=== PATIENT | male | born 1955 | race Caucasian/White ===

== ENCOUNTER → 2020-03-03 15:37 | Outpatient (BNVA) | payer OTHER, SELFPAY | PROVIDERS: PCP Internal Medicine; Visit Provider Physician Assistant | DX: Z76.89 Persons encountering health services in other specified circumstances (principal) ==

== ENCOUNTER → 2020-03-06 13:08 | Outpatient (BNVA) | payer OTHER, SELFPAY | PROVIDERS: PCP Internal Medicine; Referring Provider Internal Medicine; Visit Provider Dietitian, Registered | DX: Z76.89 Persons encountering health services in other specified circumstances (principal) ==

== ENCOUNTER → 2020-04-04 08:11 | Outpatient (BNVA) | payer OTHER, SELFPAY | PROVIDERS: Visit Provider Physician Assistant | DX: Z76.89 Persons encountering health services in other specified circumstances (principal) ==

== ENCOUNTER → 2020-05-02 09:57 | Outpatient (BNVA) | payer OTHER, SELFPAY | PROVIDERS: PCP Internal Medicine; Referring Provider Internal Medicine; Visit Provider Surgery | DX: Z76.89 Persons encountering health services in other specified circumstances (principal) ==

== ENCOUNTER 2020-06-01 06:01 | Outpatient (REF) | payer OTHER, SELFPAY ==
[2020-06-01 09:18] LABS: Vitamin D 25-OH Total 56.5 ng/mL (>30)
== END 2020-06-01 06:02 | disposition home or self-care (01) ==
LOC: HO.LAB 06:01
PROVIDERS: PCP Internal Medicine; Referring Provider Internal Medicine; Visit Provider Surgery
DX: Z01.818 Encounter for other preprocedural examination (principal); E55.9 Vitamin D deficiency, unspecified
CPT/HCPCS: 36415; 82306

== ENCOUNTER → 2020-06-08 08:10 | Outpatient (BNVA) | payer OTHER, SELFPAY | PROVIDERS: PCP Internal Medicine; Visit Provider Dietitian, Registered ==

== ENCOUNTER → 2020-07-04 14:54 | Outpatient (BNVA) | payer OTHER, SELFPAY | PROVIDERS: PCP Internal Medicine; Visit Provider Surgery | DX: K91.2 Postsurgical malabsorption, not elsewhere classified (principal); Z90.3 Acquired absence of stomach [part of]; Z01.818 Encounter for other preprocedural examination; Z13.9 Encounter for screening, unspecified ==

== ENCOUNTER → 2020-08-03 13:40 | Outpatient (BNVA) | payer OTHER, SELFPAY | PROVIDERS: PCP Internal Medicine; Visit Provider Dietitian, Registered | DX: Z68.41 Body mass index [BMI] 40.0-44.9, adult (principal) ==

== ENCOUNTER 2020-08-28 06:00 | Outpatient (REF) | payer OTHER, SELFPAY ==
[2020-08-28 07:26] LABS: MANUAL DIFF FLAG NO
[2020-08-28 07:30] LABS: Basophils Absolute Auto 0.1 X10*3/uL (0.0-0.2); Basophils Percent Auto 0.6 % (0-2); Eosinophils Absolute Auto 0.3 X10*3/uL (0.0-0.4); Eosinophils Percent Auto 3.2 % (0-4); Hematocrit 48.8 % (42-52); Hemoglobin 15.6 g/dl (14.0-18.0); Imm Gran Abs Auto 0.02 X10*3/uL (0.00-0.03); Imm Gran Pct Auto 0.3 % (0.0-0.4); Lymphocytes Absolute Auto 2.2 X10*3/uL (1.2-4.9); Lymphocytes Percent Auto 28.8 % (20-40); Mean Corpuscular Hemoglobin 31.9 pg (27.0-33.0); Mean Corpuscular Volume 99.8 fL (80-98); Mean Platelet Volume 10.6 fL (9.4-12.4); Monocytes Absolute Auto 0.7 X10*3/uL (0.1-1.2); Monocytes Percent Auto 8.6 % (2-11); Neutrophils Absolute Auto 4.5 X10*3/uL (2.0-8.3); Neutrophils Percent Auto 58.5 % (45-73); Platelet Count 289 X10*3/uL (160-400); Red Blood Count 4.89 X10*6/uL (4.60-5.80); Red Cell Distribution Width 13.8 % (11.0-16.0); White Blood Count 7.7 X10*3/uL (4.8-10.8)
[2020-08-28 07:49] LABS: Alanine Aminotransferase 17 U/L (0-40); Alkaline Phosphatase 62 U/L (39-117); Anion Gap 11 (12-20); Aspartate Amino Transferase 18 U/L (5-37); Bilirubin Total 0.9 mg/dL (0.0-1.0); Blood Urea Nitrogen 21 mg/dL (9-16); C Reactive Protein 0.32 mg/dL (< or = 0.50); Calcium 9.1 mg/dL (8.4-10.2); Carbon Dioxide 28 mmol/L (22-29); Chloride 108 mmol/L (96-108); Cholesterol 179 mg/dL; Estimated Glomerular Filt Rate > 60; Glucose Fasting 93 mg/dL (60-99); HDL Cholesterol 45 mg/dL; Iron 123 mcg/dL (45-160); LDL Cholesterol Calculated 121 mg/dl; Percent Iron Saturation 49 % (15-50); Potassium 4.4 mmol/L (3.3-5.1); Sodium 143 mmol/L (135-145); Total Iron Binding Capacity 249 mcg/dL (228-428); Total Protein 6.4 g/dL (6.5-8.0); Triglycerides 69 mg/dL; Unsaturated Iron Binding 126 ug/dL
[2020-08-28 08:12] LABS: Thyroid Stimulating Hormone 0.43 uIU/mL (0.32-4.0); Vitamin D 25-OH Total 45.8 ng/mL (>30)
[2020-08-28 08:14] LABS: Free T4 (Free Thyroxine) 0.92 ng/dL (0.71-1.85); Prostate Specific Antigen Scr 0.11 ng/mL (<0.05-4.0); Vitamin D 25-OH Total 44.3 ng/mL (>30)
[2020-08-28 08:20] LABS: Folate 16.2 ng/mL (> or = 4.0); Vitamin B12 380 pg/mL (200-900)
[2020-08-29 08:07] LABS: Follicle Stimulating Hormone 11.6 mIU/mL (1.6-8.0); Lutenizing Hormone 4.3 mIU/mL (1.6-15.2); Prolactin 5.6 ng/mL (2.0-18.0)
[2020-08-31 00:32] LABS: Zinc 91 mcg/dL (60-130)
[2020-08-31 11:42] LABS: Vitamin B1 10 nmol/L (8-30)
[2020-09-01 10:51] LABS: Testosterone, Total 488 ng/dL (250-1100)
[2020-09-01 16:57] LABS: Vitamin A 60 mcg/dL (38-98)
== END 2020-08-28 06:01 | disposition home or self-care (01) ==
LOC: HO.LAB 06:00
PROVIDERS: Absent Provider Surgery; PCP Internal Medicine; Visit Provider Internal Medicine
DX: Z01.818 Encounter for other preprocedural examination (principal); Z12.5 Encounter for screening for malignant neoplasm of prostate; K91.2 Postsurgical malabsorption, not elsewhere classified; Z90.3 Acquired absence of stomach [part of]; N52.9 Male erectile dysfunction, unspecified; E78.00 Pure hypercholesterolemia, unspecified
CPT/HCPCS: 36415; 80053; 80061; 82306; 82607; 82746; 83001; 83002; 83540; 84146; 84153; 84403; 84425; 84439; 84443; 84590; 84630; 85025; 86140

== ENCOUNTER → 2020-12-19 10:34 | Outpatient (BNVA) | payer OTHER, SELFPAY | PROVIDERS: PCP Internal Medicine; Visit Provider Surgery | DX: Z01.818 Encounter for other preprocedural examination (principal); K91.2 Postsurgical malabsorption, not elsewhere classified; Z90.3 Acquired absence of stomach [part of] ==

== ENCOUNTER 2021-02-16 05:58 | Outpatient (REF) | payer OTHER, SELFPAY ==
[2021-02-16 06:07] LABS: MANUAL DIFF FLAG NO
[2021-02-16 07:28] LABS: Basophils Absolute Auto 0.1 X10*3/uL (0.0-0.2); Basophils Percent Auto 0.7 % (0-2); Eosinophils Absolute Auto 0.3 X10*3/uL (0.0-0.4); Eosinophils Percent Auto 3.8 % (0-4); Hematocrit 50.3 % (42-52); Imm Gran Abs Auto 0.02 X10*3/uL (0.00-0.03); Imm Gran Pct Auto 0.3 % (0.0-0.4); Lymphocytes Absolute Auto 2.6 X10*3/uL (1.2-4.9); Lymphocytes Percent Auto 34.9 % (20-40); Mean Corpuscular HGB Conc 31.8 g/dl (31.0-36.0); Mean Corpuscular Hemoglobin 31.4 pg (27.0-33.0); Mean Corpuscular Volume 98.8 fL (80-98); Mean Platelet Volume 10.4 fL (9.4-12.4); Monocytes Absolute Auto 0.6 X10*3/uL (0.1-1.2); Monocytes Percent Auto 7.8 % (2-11); Neutrophils Absolute Auto 3.9 X10*3/uL (2.0-8.3); Neutrophils Percent Auto 52.5 % (45-73); Platelet Count 294 X10*3/uL (160-400); Red Blood Count 5.09 X10*6/uL (4.60-5.80); Red Cell Distribution Width 13.3 % (11.0-16.0); White Blood Count 7.5 X10*3/uL (4.8-10.8)
[2021-02-16 07:34] LABS: Estimated Average Glucose 108 mg/dL; Hemoglobin A1c % 5.4 %
[2021-02-16 07:53] LABS: Alanine Aminotransferase 20 U/L (0-40); Albumin Level 4.1 g/dL (3.5-5.0); Alkaline Phosphatase 63 U/L (39-117); Anion Gap 13 (12-20); Aspartate Amino Transferase 22 U/L (5-37); Bilirubin Total 0.8 mg/dL (0.0-1.0); Blood Urea Nitrogen 22 mg/dL (9-16); C Reactive Protein 0.53 mg/dL (< or = 0.50); Calcium 9.8 mg/dL (8.4-10.2); Carbon Dioxide 30 mmol/L (22-29); Chloride 106 mmol/L (96-108); Cholesterol 217 mg/dL; Estimated Glomerular Filt Rate > 60; Glucose Fasting 91 mg/dL (60-99); HDL Cholesterol 48 mg/dL; Iron 136 mcg/dL (45-160); LDL Cholesterol Calculated 149 mg/dl; Percent Iron Saturation 49 % (15-50); Potassium 4.8 mmol/L (3.3-5.1); Sodium 144 mmol/L (135-145); Total Iron Binding Capacity 277 mcg/dL (228-428); Total Protein 6.7 g/dL (6.5-8.0); Triglycerides 101 mg/dL; Unsaturated Iron Binding 141 ug/dL
[2021-02-16 08:17] LABS: Thyroid Stimulating Hormone 0.98 uIU/mL (0.32-4.0); Vitamin D 25-OH Total 38.2 ng/mL (>30)
[2021-02-16 08:18] LABS: Vitamin B12 329 pg/mL (200-900)
[2021-02-21 03:01] LABS: Zinc 78 mcg/dL (60-130)
[2021-02-21 04:51] LABS: Vitamin A 72 mcg/dL (38-98)
[2021-02-21 13:27] LABS: Vitamin B1 14 nmol/L (8-30)
== END 2021-02-16 05:59 | disposition home or self-care (01) ==
LOC: HO.LAB 05:58
PROVIDERS: PCP Internal Medicine; Visit Provider Surgery
DX: Z01.818 Encounter for other preprocedural examination (principal); N52.9 Male erectile dysfunction, unspecified; E78.00 Pure hypercholesterolemia, unspecified; K91.2 Postsurgical malabsorption, not elsewhere classified; Z90.3 Acquired absence of stomach [part of]
CPT/HCPCS: 36415; 80053; 80061; 82306; 82607; 83036; 83540; 84425; 84443; 84590; 84630; 85025; 86140

== ENCOUNTER 2023-01-22 18:56 | Emergency (ER) | payer MEDICARE, OTHER, SELFPAY ==
--- NOTE | ~2023-01-22 | CT_ITS ---
EXAMINATION: CT FEMUR WITHOUT CONTRAST, RIGHT CLINICAL INFORMATION: Severe pain, fall. COMPARISON: None available. TECHNIQUE: Multidetector volumetric imaging was obtained through the right femur without contrast material. Multiplanar reformatted images in coronal and sagittal orientations were submitted. This CT examination was performed using dose optimization techniques as appropriate, variously including the following: *Automated exposure control *Adjustment of mA and/or kV according to patient size (this includes techniques or standardized protocols for targeted exams where dose is matched to indication/reason for exam; i.e. extremities or head) *Use of iterative reconstruction technique DLP: 371 mGy-cm FINDINGS: No acute fracture or malalignment. Bone mineralization is normal. There is mild osteoarthritis of the right hip joint with small marginal osteophytes and nonuniform joint space narrowing. There is tricompartmental osteoarthritis at the right knee, most pronounced in the lateral compartment, characterized by nonuniform joint space narrowing, marginal osteophytes, articular sclerosis, talar cortical remodeling, subchondral cystic change. There is a small effusion at the right knee joint. Of note, there is swelling of the right hamstring musculature and the adductor katy. Additionally, there is a probable hematoma in the fascial planes surrounding the hamstring tendons and sciatic nerve. This hematoma appears near isodense to the musculature, making the margins difficult to discern, though it measures roughly 9 x 4.5 x 18 cm (AP by transverse by longitudinal). Fat stranding is present in the surrounding fascial planes. A tear of the hamstring tendon origins with distal retraction is suspected, though the margins are not well delineated by CT. Distal retraction up to 8.5 cm is suspected. Asymmetry of the right piriformis muscle is likely due to relative atrophy of the left piriformis related to the prior left total hip arthroplasty, within normal limits. Atrophy of the left obturator internus muscle is also noted. There is a small amount of fluid in the right presacral fat, partially imaged on this study. Otherwise, no acute intrapelvic findings. Dystrophic calcifications are present in the central prostate. CT/CT femur RT wo IV con IMPRESSION: 1. No acute fracture or malalignment at the right femur. 2. Large intramuscular hematoma around the right proximal hamstring musculature and adductor katy, most likely due to an avulsion of the hamstring tendons at the ischial tuberosity. Consider correlation with MRI for more detailed assessment. 3. Small amount of fluid in the right presacral fat, partially imaged on this study. This could be further assessed on MRI of the pelvis if the patient has symptoms referrable to the central pelvis or sacrum.
--- NOTE | ~2023-01-22 | XR_ITS ---
EXAMINATION: XR PELVIS XR FEMUR, RIGHT CLINICAL INFORMATION: Pain status-post fall. COMPARISON: Left hip radiographs dated 08/09/2016; CT abdomen and pelvis dated 03/23/2018. TECHNIQUE: AP view of the pelvis. AP and lateral views of the right femur were obtained. FINDINGS: Prosthetic components of the left total hip arthroplasty are appropriately aligned. No periprosthetic fracture. There is stable subchondral cyst formation of the acetabulum. There is brandin-implant lucency of 1-2 mm, which is clinically insignificant. No gross loosening is seen. The right acetabular joint space is well-maintained, and the right femoral head is smooth. The right sacroiliac joint is well-maintained. The upper left sacroiliac joint shows joint space narrowing, articular surface irregularity and subchondral sclerosis, consistent with CT findings of 03/23/2018 (i.e., 4:125). The pubic symphysis is intact. There is no fracture or dislocation. No soft tissue calcification or foreign body is seen. There are incompletely characterized degenerative changes of the lower lumbar spine. XR/XR femur RT 2V IMPRESSION: 1. An intact left hip total arthroplasty is seen, without hardware failure or gross loosening. 2. No unusual degenerative change is seen of the right hip. 3. There is asymmetric left sacroiliitis, which can be associated with psoriatic arthritis and reactive arthritis. 4. No acute fracture or dislocation is seen.
--- NOTE | ~2023-01-22 | XR_ITS ---
EXAMINATION: XR PELVIS XR FEMUR, RIGHT CLINICAL INFORMATION: Pain status-post fall. COMPARISON: Left hip radiographs dated 08/09/2016; CT abdomen and pelvis dated 03/23/2018. TECHNIQUE: AP view of the pelvis. AP and lateral views of the right femur were obtained. FINDINGS: Prosthetic components of the left total hip arthroplasty are appropriately aligned. No periprosthetic fracture. There is stable subchondral cyst formation of the acetabulum. There is brandin-implant lucency of 1-2 mm, which is clinically insignificant. No gross loosening is seen. The right acetabular joint space is well-maintained, and the right femoral head is smooth. The right sacroiliac joint is well-maintained. The upper left sacroiliac joint shows joint space narrowing, articular surface irregularity and subchondral sclerosis, consistent with CT findings of 03/23/2018 (i.e., 4:125). The pubic symphysis is intact. There is no fracture or dislocation. No soft tissue calcification or foreign body is seen. There are incompletely characterized degenerative changes of the lower lumbar spine. XR/XR pelvis 1-2V IMPRESSION: 1. An intact left hip total arthroplasty is seen, without hardware failure or gross loosening. 2. No unusual degenerative change is seen of the right hip. 3. There is asymmetric left sacroiliitis, which can be associated with psoriatic arthritis and reactive arthritis. 4. No acute fracture or dislocation is seen.
[2023-01-22 19:19] VITALS: BP 118/77; PULSE 95; RESP 20; TEMP 36; O2SAT 96; BMI 47.0
--- NOTE | 2023-01-22 19:21 | ED_ITS ---
HPI - General Adult General Chief complaint: Extremity Injury, Lower Stated complaint: fell groin pain Time Seen by Provider: 01/22/23 19:58 Source: patient Mode of arrival: ambulatory Limitations: no limitations History of Present Illness HPI narrative: Patient is a 67-year-old male presents emergency department after mechanical slip and fall on water landing on his buttock with the right leg extended forward at approximately 45 degree angle, with reported pain to the right thigh radiating into the hip. Pain is severe 10/10. Denies any head strike or loss of consciousness with this fall. Denies numbness or tingling to the extremity. Related Data Previous Rx's Medication Instructions Recorded sildenafil 100 mg tablet 100 mg PO DAILY PRN sexual 12/29/22 activity #10 tabs Allergies Allergy/AdvReac Type Severity Reaction Status Date / Time No Known Allergies Allergy Verified 01/22/23 19:22 [No Known Allergies*] Review of Systems Review of Systems: Yes all other systems are reviewed and are negative PMFSH Past Medical History Attestation statement: The following information was validated with the patient. Source: old records reviewed Medical History Vitamin D deficiency Morbid (severe) obesity due to excess calories Intestinal malabsorption following gastrectomy Hearing impaired Impaired fasting glucose Osteoarthritis Hypercholesterolemia BMI 40.0-44.9, adult Malabsorption due to intolerance, not elsewhere classified Morbid obesity Surgical History History of hip replacement Hx laparoscopic cholecystectomy S/P ERCP Hx of tonsillectomy S/P laparoscopic sleeve gastrectomy Family History Family History Father Myocardial infarct Mother No problems noted. Brother Hypertension Brother No problems noted. Sister No problems noted. Sister No problems noted. Son No problems noted. Daughter No problems noted. Daughter No problems noted. Daughter No problems noted. Social History Social History (Updated 04/10/22 @ 11:35 by Tony Francis MD) Housing: House Alcohol intake: never Patient Tobacco Use Status: Former Tobacco user Tobacco use type: Cigarette Years Smoked: stopped 1998 Smoked in Last 30 Days: No e-Cigarette/Vaping Use: Never Used Second Hand Smoke Exposure: No Use of substances other than those prescribed or required for medical reasons: No Advance Directives: No Advance Directives Information Provided: Yes Current occupational status: retired Cognitive needs: No Hearing needs: No Vision needs: Yes Physical Exam ED Vital Signs: Vital Signs - 24 hr 01/22/23 19:19 01/22/23 21:43 01/23/23 00:00 Temperature 96.8 F 98.3 F 97.7 F Pulse Rate 95 81 62 Respiratory Rate 20 16 16 Blood Pressure 118/77 107/51 L 120/65 Pulse Oximetry 96 95 97 Oxygen Delivery Method Room Air Room Air Room Air 01/23/23 01:53 01/23/23 06:56 Temperature 97.8 F Pulse Rate 88 79 Respiratory Rate 16 18 Blood Pressure 142/77 H 115/56 L Pulse Oximetry 93 95 Oxygen Delivery Method Room Air Room Air BMI result Body Mass Index 47.0 Appearance: Alert.?Oriented to person, place and time. No acute distress.?Normal affect. Neck: Normal inspection.? Neck supple.?? CVS: Heart sounds normal. Normal heart rate and rhythm.? Pulses normal.?? Respiratory: No respiratory distress.? Lung sounds clear to auscultation bilaterally?? Abdomen: Soft and non-tender. Skin: Skin warm and dry.? Normal skin color.? Normal skin turgor.?? Extremities: No lower extremity edema.? No calf ttp. 2+ DP/PT pulse bilaterally. No palpable abnormality, hematoma, or appreciated deformity of the right posterior thigh/lower extremity at this time, severe pain with movement of the leg, inability to weightbear. Neuro: Moves all extremities spontaneously. Sensation intact bilaterally. No focal neuro deficits. Course Course Course Narrative: RME- 67 year old male presents for evaluation of right posterior leg pain after a fall. Tenderness to the right hamstring region. Plan for femur x-ray, but most consistent with musclar injury Reevaluation(s) Reevaluation #1: Patient continues to have severe 10/10 pain despite receiving oxycodone. Although XR imaging negative for any acute fracture dislocation, concern for muscular/tendon injury, plan to obtain CT of the femur for further evaluation. Patient to receive diazepam 2 mg Time: 21:13 Reevaluation #2: CT of the femur revealing a large intramuscular hematoma around the right proximal hamstring an abductor katy most likely due to avulsion of the hamstrings tendon at the ischial tuberosity. Patient received Dilaudid 2 mg IM, upon re-evaluation no appreciated muscular deformity, ecchymosis, or findings that would be consistent with compartment syndrome. Has tenderness upon palpation to the medial posterior proximal thigh just below the gluteal fold, this area is soft. Extremity remains neurovascularly intact distally. I consulted with Orthopedics; Mary Yu recommends weight-bearing as tolerated and follow-up outpatient. I reviewed this plan with patient and his . At this time expressing concern about ability to be discharged home safely to prevent pain and immobility. Patient provided with crutches. Will have physical therapy/case management evaluation in the morning. Time: 00:34 Reevaluation #3: PT. Will arrange [facility] for prison and physical therapy. will transport him home. Medications Administered Generic Name Dose Route Start Last Admin Trade Name Freq PRN Reason Stop Dose Admin Hydromorphone HCl 2 mg 01/23/23 03:33 01/23/23 07:05 Hydromorphone Hcl 2 Mg Tablet PO 2 mg Q3H PRN Administration Pain, Moderate(Pain Scale 4-6) Discontinued Medications Generic Name Dose Route Start Last Admin Trade Name Freq PRN Reason Stop Dose Admin Diazepam 2 mg 01/22/23 21:17 01/22/23 21:35 Diazepam 2 Mg Tablet PO 01/22/23 21:18 2 mg ONCE ONE Administration Hydromorphone HCl 2 mg 01/23/23 00:08 01/23/23 00:13 Hydromorphone Hcl 2 Mg/Ml Vial IM 01/23/23 00:09 2 mg ONCE ONE Administration Protocol Oxycodone HCl 5 mg 01/22/23 19:47 01/22/23 20:12 Oxycodone Hcl Immed Release 5 Mg Tablet PO 01/22/23 19:48 5 mg ONCE ONE Administration Medical Decision Making Medical Decision Making MDM Narrative: Patient is a 67-year-old male presents emergency department for evaluation of traumatic right lower extremity pain. Reviewed XR imaging of the right femur and pelvis obtained [facility]; reveals left hip arthroplasty without hardware failure or malalignment, asymmetric left sacroiliitis, no acute fracture or dislocation. At the time my examination he is noted to be in severe pain sitting in a wheelchair with leg in extended position. Unable to weight bear. Required significant assistance to transfer to the stretcher for examination. Has no knee pain. Extremity is neurovascularly intact distally. Diffuse severe pain predominantly to the posterior thigh radiating into the hip but also the anterior thigh. Pain has been unrelieved with oxycodone that was ordered by previous provider from [facility]. Plan at this time for patient received diazepam orally, and obtain CT of the femur for further evaluation a potential muscular injury. Differential Diagnosis Differential Diagnoses: The differential diagnosis associated with the presentation includes (Fracture, dislocation, muscular strain, tendon rupture) Admission/Observation Consideration of admission/observation: Escalation of care including admission/observation considered Consult Healthcare Provider Management of the patient was discussed with: Duplicator Punch Set Up Operator (Orthopedics as per course narrative) Lab Data Labs: Lab Results 01/23/23 Range/Units 09:03 COVID-19 ([facility]) Negative (Negative) COVID-19 Clin Com See Note Independent Interpretation I performed an independent interpretation of an: Plain X-Ray (I personally interpreted XR imaging and agree with radiologist impression. No evidence of acute fracture or dislocation.) Radiology Impression Discussion of test interpretation with radiology: I have reviewed the radiologist's reading. Radiologist Impression: XR/XR pelvis 1-2V IMPRESSION: 1. An intact left hip total arthroplasty is seen, without hardware failure or gross loosening. 2. No unusual degenerative change is seen of the right hip. 3. There is asymmetric left sacroiliitis, which can be associated with psoriatic arthritis and reactive arthritis. 4. No acute fracture or dislocation is seen. CT/CT femur RT wo IV con IMPRESSION: 1. No acute fracture or malalignment at the right femur. 2. Large intramuscular hematoma around the right proximal hamstring musculature and adductor katy, most likely due to an avulsion of the hamstring tendons at the ischial tuberosity. Consider correlation with MRI for more detailed assessment. 3. Small amount of fluid in the right presacral fat, partially imaged on this study. This could be further assessed on MRI of the pelvis if the patient has symptoms referrable to the central pelvis or sacrum. Independent Historian Clinical information obtained from an independent historian. History obtained from or confirmed by: Spouse (Present at bedside who confirms history) Tests considered The following testing was considered but not selected: See course narrative for further detail Prescription Management I considered prescription management with: Pain Medication Discharge Plan Discharge Clinical Impression: Intramuscular hematoma Fall Qualifiers: Encounter type: initial encounter Qualified Code(s): W19.XXXA - Unspecified fall, initial encounter Patient Disposition: Home, Self-Care Instructions: Fall Prevention (ED) Additional Instructions: Take your medications as prescribed. If you were prescribed antibiotics today, it is important that you take your medication to their entirety, do not skip any doses, do not finish them early. Follow-up with your primary care provider this week. Return to the emergency department with new or worsening symptoms. Such as fevers, chills, chest pain, shortness of breath, nausea, vomiting, dizziness, headache, vision changes, lethargy In case of emergency call 911 Prescriptions: No Action sildenafil 100 mg tablet 100 mg PO DAILY PRN (Reason: sexual activity) Qty: 10 5RF Rx Instructions: administer 30 minutes to 4 hours before activity Referrals: Ozzy Colón [Outside] (VNA arranged just in case [facility] does not have home physical therapy. Agency will call for a visit. You can decline their services at that time if not needed. )
[2023-01-22] MEDS: oxyCODONE HCl Immed Release 5 MG TABLET PO (20:12)
[2023-01-22] MEDS: diazePAM 2 MG TABLET PO (21:35)
[2023-01-22 21:43] VITALS: BP 107/51; PULSE 81; RESP 16; TEMP 36.8; O2SAT 95
--- NOTE | 2023-01-22 23:04 | PC.NURSE ---
pt medicated per JUL pt sts oxy 5mg was not effective, sts that valium has imporved his symptoms somewhat. pt sts hamstring is most painful at this time. pt awaiting ct scan read,pt repositioned self in WC- pt spouse at bedside, call waller within reach.
--- NOTE | 2023-01-22 23:51 | PC.NURSE ---
Report received and care assumed. The pt is found to be seated in a wheelchair in the room with bedside visitor presents, inquiring about what's taking so long . RN explained that the staff was awaiting CT read of the pt's imaging. Pt also reporting that the previous medication given (Oxycodone and valium) did not do anything for my hamstring as he reports it assisted with his calf pain and minimally improved his pain however the pain is returning. RN awaiting the ability to notify EXPANDER as she is currently in with another patient. RN to follow up with EXPANDER regarding new orders for patient's pain control/management.
[2023-01-23] VITALS: BP 120/65; PULSE 62; RESP 16; TEMP 36.5; O2SAT 97
--- NOTE | 2023-01-23 00:05 | PC.NURSE ---
RN consulted DO Garza regarding the pt's case as his imaging had returned and his request for additional pain medication. DO Garza entered new orders for pain medication and requested the pt be assisted tot he bed for full examination to assess for compartment syndrome.
[2023-01-23] MEDS: HYDROmorphone HCl 2 MG/ML VIAL IM (00:13)
[2023-01-23 01:53] VITALS: BP 142/77; PULSE 88; RESP 16; TEMP 36.6; O2SAT 93
--- NOTE | 2023-01-23 01:57 | MHC.EDTECH ---
[place] [facility] now [place] this tech offered patient a hospital bed for comfort ,patient stated I'm comfortable in this bed I'm all set RN Enedelia was at bedside. This tech also attempted to teach crutches, patient stated not now he didn't want to wake up Will attempt in the morning when patient is awake. call waller within reach
--- NOTE | 2023-01-23 02:12 | PC.NURSE ---
report received from qing SAHU pt moved from emc bed 2 to ED bed 7 - PT/FERMIN andrade in AM
[2023-01-23] MEDS: HYDROmorphone HCl 2 MG TABLET PO ×3 (03:43→10:31)
[2023-01-23 06:56] VITALS: BP 115/56; PULSE 79; RESP 18; O2SAT 95
--- NOTE | 2023-01-23 07:06 | PC.NURSE ---
pt a&ox3. respirations even and unlabored.pt reports right leg pain from a mechanical fall yesterday after slipping on water. no reddnes and swelling noted. pt right back upper leg tender to touch. pt medicated per jul.
--- NOTE | 2023-01-23 07:51 | PC.NURSE ---
report given to emanuel in overflow.
[2023-01-23 09:23] LABS: IDNOW Serial# 55D5AD1C
[2023-01-23 09:24] LABS: COVID-19 Test Negative (Negative)
--- NOTE | 2023-01-23 10:15 | MHC.CM.ED ---
Received case management consult overnight. Patient came to the ER after a fall. Found to have a left leg intramuscular hematoma. Physical therapy eval completed. Home therapy is recommended. Met with patient in regards to discharge planning. Patient lives with his , ambulates with a cane at times and had no services prior to coming to the ER. PCP verified as Dr Francis. Patient received 3 Moderna and 1 Pfizer vaccine. Patient wants to follow up with [facility] and believes they have home physical therapy. Home [facility]NA for [facility] and physical therapy will be arranged just in case [facility] is not able to provide home services. [facility] will not be able to see patient before Friday. Referral broadcasted in [facility]. [facility] is able to accept patient. Patient's will transport patient home. Continue to monitor for d/c needs.
[2023-01-23 10:31] VITALS: BP 165/80; PULSE 83; RESP 18; O2SAT 98
== END 2023-01-23 10:50 | disposition home or self-care (01) ==
PROVIDERS: Physician Assistant; Emergency Provider Student in an Organized Health Care Education/Training Program; PCP Internal Medicine
DX: S80.11XA Contusion of right lower leg, initial encounter (principal); M25.551 Pain in right hip; R26.81 Unsteadiness on feet; M79.604 Pain in right leg; R10.2 Pelvic and perineal pain; W01.0XXA Fall on same level from slipping, tripping and stumbling without subsequent striking against object, initial encounter; Y93.9 Activity, unspecified; Y92.9 Unspecified place or not applicable; Y99.9 Unspecified external cause status; Z20.822 Contact with and (suspected) exposure to COVID-19; Z20.828 Contact with and (suspected) exposure to other viral communicable diseases; Z87.891 Personal history of nicotine dependence; Z79.899 Other long term (current) drug therapy
CPT/HCPCS: 72170; 73552; 73700; 87635; 96372; 97162; 99284; 99285; J1170

== ENCOUNTER 2023-02-05 09:52 | Outpatient (AMB) | payer MEDICARE, OTHER, SELFPAY ==
--- NOTE | 2023-02-05 09:56 | A.OFFPC_ITS ---
Vital Signs 3 02/05/23 10:05 Height 5 ft 7.32 in Weight 339 lb 4 oz BMI 52.6 BP 134/70 Blood Pressure Location Lt brachial Position Sitting Respiration 18 Pulse 75 Pulse Source Pulse Oximeter Pulse Oximetry (%) 98 Oxygen Delivery Method Room Air Intake Visit Reasons: Hamstring Pain Intake Note: Pt is here for hamstring pain for two weeks, Dr. Francis's pt. 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 Accompanied by: Self / Same As Patient Allergies No Known Allergies [No Known Allergies*] Allergy (Verified 02/05/23 10:36) Medication List - Last Reconciled 02/05/23 by Sj Sherman PA-C acetaminophen (Tylenol) 650 mg (2 x 325 mg) PO QID PRN cyclobenzaprine 5 mg (1/2 x 10 mg) PO BEDTIME PRN lidocaine 5% 1 patch topical DAILY PRN sildenafil 100 mg PO DAILY PRN Tobacco use date assessed: 02/05/23 Fall risk assessment: 1 Fall in past year Last assessed Fall Risk: 02/05/23 Dental Screening Dental Screen Date: 02/05/23 Did you have a dental visit in the last 12 months?: Yes Did you have a dental problem in the last 6 months where you did not have access to dental care?: No Was dental information given to patient?: Patient has dentist HPI Hamstring Pain 2 HPI0 Details Patient is a 67-year-old male here today for problem visit. This is the 1st time I am meeting this 67-year-old male who recently was evaluated at the [place] [facility] for acute injury to his lower extremity. He did slip and fall at work injuring his left leg. CT of femur revealing a large intramuscular hematoma likely due to an avulsion of the hamstring tendon. Also has developed irritation over his gland penis, thinking this is a fungal infection. Has been using Aquaphor moisturizer which has been helpful. [facility] Medical History Vitamin D deficiency Morbid (severe) obesity due to excess calories Intestinal malabsorption following gastrectomy Hearing impaired Impaired fasting glucose Osteoarthritis Hypercholesterolemia BMI 40.0-44.9, adult Malabsorption due to intolerance, not elsewhere classified Morbid obesity Surgical History History of hip replacement Hx laparoscopic cholecystectomy S/P ERCP Hx of tonsillectomy S/P laparoscopic sleeve gastrectomy Family History Father Myocardial infarct Mother No problems noted. Brother Hypertension Brother No problems noted. Sister No problems noted. Sister No problems noted. Son No problems noted. Daughter No problems noted. Daughter No problems noted. Daughter No problems noted. Social History Housing: House Alcohol intake: never Patient Tobacco Use Status: Former Tobacco user Tobacco use type: Cigarette Years Smoked: stopped 1997 e-Cigarette/Vaping Use: Never Used Second Hand Smoke Exposure: No service: No Current occupational status: retired Cognitive needs: No Hearing needs: No Vision needs: Yes Questionnaire PHQ-9 Over the last 2 weeks, how often have you been bothered by any of the following problems? 1. Little interest or pleasure in doing things: not at all 2. Feeling down, depressed, or hopeless: not at all 3. Trouble falling or staying asleep, or sleeping too much: not at all 4. Feeling tired or having little energy: not at all 5. Poor appetite or overeating: not at all 6. Feeling bad about yourself - or that you are a failure or have let yourself or your family down: not at all 7. Trouble concentrating on things, such as reading the newspaper or watching television: not at all 8. Moving or speaking so slowly that other people could have noticed. Or the opposite - being so fidgety or restless that you have been moving around a lot more than usual: not at all 9. Thoughts that you would be better off or of hurting yourself in some way: not at all Total score: 0 Depression Screening Interpretation: Negative [id number] - PHQ-9 Billing: Yes Source: Developed by Drs. Wesley Hernandez, Nidhi Hu, Cristiano Dobson and colleagues, with an educational tiana from [employer]. Thrive Questionnaire Date Thrive assessed: 02/05/23 I am a: Patient What is your living situation today?: I have a steady place to live Within the past 12 months, did the food you bought not last and you didn't have the money to get more?: Never true Within the past 12 months, did you worry whether your food would run out before you got money to buy more?: Never true Do you have trouble paying for medicines?: No Do you have trouble getting transportation to medical appointments?: No Do you have trouble paying your heating and electricity bill?: No Do you have trouble taking care of your child, family member or friend?: No Do you have trouble with day-to-day activities such as bathing, preparing meals, shopping, managing finances, etc.?: No Are you currently unemployed and looking for a job?: No Are you interested in more education?: No Please select the resources that you would like help with: None Currently or been in a relationship where the following occur: no concerns reported AUDIT C Alcohol Use Questionnaire (AUDIT-C) 1. How often do you have a drink containing alcohol?: Never 3. How often do you have six or more drinks on one occasion?: Never Total Score: 0 RADHA-7 AMB Questionnaire ARDHA-7 Date RADHA - 7 assessed: 02/05/23 Feeling nervous, anxious, or on edge: 0 = Not at all Not being able to stop or control worryin = Not at all Worrying too much about different things: 0 = Not at all Trouble relaxin = Not at all Being so restless that it is hard to sit still: 0 = Not at all Becoming easily annoyed or irritable: 0 = Not at all Feeling afraid as if something awful might happen: 0 = Not at all Total RADHA-7 score (0-4 normal; 5-9 mild; 10-14 moderate; 15-21 severe): 0 Source: Developed by Drs. Wesley Hernandez, Nidhi Hu, Cristiano Dobson and colleagues, with an educational tiana from [employer]. RADHA-7 Assessment Billing RADHA-7 Assessment Tool: RADHA-7 Assessment 35291 Review of Systems Const Denies headache(s) Eyes Denies loss of vision ENT Denies vertigo, Denies dizziness, Denies headache(s) and Denies sore throat Card Denies chest pain, Denies leg edema and Denies lightheadedness Resp Denies cough, Denies hemoptysis and Denies wheezing GI Denies abdominal pain, Denies melena, Denies constipation, Denies diarrhea and Denies vomiting Denies dysuria, Denies urinary frequency and Denies urinary urgency Musc Denies arthralgias, Denies joint swelling, Denies numbness and Denies tingling Neuro Denies Abnormal speech present, Denies behavioral changes, Denies vertigo, Denies dizziness, Denies headache(s), Denies loss of vision, Denies memory loss, Denies numbness and Denies tingling Psych Denies anxiety, Denies behavioral changes, Denies depression, Denies memory loss and Denies panic attacks Flavio/Lymph Denies easy bleeding and Denies easy bruising Aller/Immun Denies wheezing Physical exam (Primary Care) Vital Signs: Last Vital Signs Pulse 75 02/05/23 10:05 Resp 18 02/05/23 10:05 BP 134/70 02/05/23 10:05 Pulse Ox 98 02/05/23 10:05 Oxygen Delivery Method Room Air 02/05/23 10:05 BMI result Body Mass Index 52.6 Tobacco/Smoking Status: Tobacco use Status Tobacco use date assessed 02/05/23 02/05/23 10:13 Patient Tobacco Use Status Former Tobacco user 02/05/23 09:56 Tobacco use type Cigarette 02/05/23 09:56 e-Cigarette/Vaping Use Never Used 02/05/23 09:56 PHQ-9: PHQ-9 Score PHQ-9: Total score 0 02/05/23 10:25 Depression Screening Interpretation: Negative Thrive Assessment: Date of Thrive Assessment Date Thrive assessed 02/05/23 02/05/23 10:13 Currently or been in a relationship where the following occur: no concerns reported Const General: healthy appearing, no acute distress, alert and awake Nutritional Appearance: well nourished Orientation/consciousness: oriented to person, oriented to place and oriented to time HENMT Ears: TM's normal bilaterally General nose exam: Normal nasal mucous membranes and turbinates present Eyes Conjunctivae: conjunctivae normal Sclerae: sclerae normal Pupils: Equal, round and reactive pupils present Neck Neck: Yes no lymphadenopathy and Yes no JVD Thyroid: Thyroid normal Carotids: no bruits Resp Effort & Inspection: normal respiratory effort and not tachypneic Auscultation: no crackles, no rales, no rhonchi and no wheezes Cardio Rate: regular rate Rhythm: regular rhythm Heart sounds: no murmurs and normal S1 and S2 GI Palpation (GI): Soft to palpation, nontender, no hepatomegaly and no splenomegaly Auscultation: normal bowel sounds Male genitals images: 2 1. ERYTHEMA OVER THE GLANS PENIS Skin General skin exam: no rashes or lesions noted and dry skin Neuro General: oriented to person, oriented to place and oriented to time Cranial nerves: Yes Equal, round and reactive pupils present Speech: No Abnormal speech present Gait exam (Neuro): Normal gait present Motor exam (neuro): no tremor noted Extrem Right upper extremity: full ROM Left upper extremity: full ROM Right lower extremity: full ROM; no edema Left lower extremity: full ROM; no edema Upper/lower leg/hip images: 2 1. ECCHYMOSIS IN THE AREA OUTLINED Psych Mental Status: mental status grossly normal Speech and movement: Normal speech and movement present Affect: normal affect Attitude: cooperative Thought process: Normal thought process present Results AMB Hemoglobin A1c 2 AMB Hemoglobin A1c 5.4 % Last Edit by HARDIK Harley on 02/05/23 10:23 Results Reviewed Results Reviewed: Laboratory Last Values Hgb A1c (Clinic) 5.4 % (4.0-6.0) 02/05/23 10:21 Assessment and Plan Assessment & Plan (1) Right proximal hamstring tendon rupture: Code(s): S76.311A - Strain of muscle, fascia and tendon of the posterior muscle group at thigh level, right thigh, initial encounter Qualifiers: Encounter type: subsequent encounter Qualified Code(s): S76.311D - Strain of muscle, fascia and tendon of the posterior muscle group at thigh level, right thigh, subsequent encounter Plan: Patient clinically doing better, has been able to ambulate much better and has much less pain. Does have ecchymosis over his right posterior and medial thigh. Offered off patient physical therapy though he declines at this time. (2) Diabetes mellitus screening: Code(s): Z13.1 - Encounter for screening for diabetes mellitus (3) Balanitis: Code(s): N48.1 - Balanitis Plan: Patient does have signs symptoms acute balanitis. Will start supply patient topical antifungal cream. Advised to keep barium dry as possible. Orders: Orders 2 AMB Hemoglobin A1c Today Z13.1 - Encounter for screening for diabetes mellitus Medications: New 2 nystatin 1 appl topical BID 15 days 30 grams 0RF N48.1 - Balanitis Refilled 2 sildenafil administer 30 minutes to 4 hours before activity 100 mg PO DAILY PRN 10 tabs 5RF sexual activity N52.9 - Male erectile dysfunction, unspecified cyclobenzaprine 5 mg (1/2 x 10 mg) PO BEDTIME PRN 14 tabs 0RF muscle spasm S76.311D - Strain of muscle, fascia and tendon of the posterior muscle group at thigh level, right thigh, subsequent encounter acetaminophen (Tylenol) 650 mg (2 x 325 mg) PO QID PRN 20 caps 0RF pain S76.311D - Strain of muscle, fascia and tendon of the posterior muscle group at thigh level, right thigh, subsequent encounter Coding Level of Care Code Est Pt Level 3 (00778) Diagnoses Rupture of right proximal hamstring tendon, subsequent encounter S76.311D Encounter type: subsequent encounter Diabetes mellitus screening Z13.1 Balanitis N48.1 Additional Codes RADHA-7 Assessment Billing - RADHA-7 Assessment Tool: RADHA-7 Assessment 96283 ([id number])
[2023-02-05 10:05] VITALS: BP 134/70; PULSE 75; RESP 18; O2SAT 98; BMI 52.6
== END 2023-02-05 12:15 | disposition home or self-care (01) ==
PROVIDERS: PCP Internal Medicine; Visit Provider Physician Assistant
DX: N48.1 Balanitis (principal); S76.311D Strain of muscle, fascia and tendon of the posterior muscle group at thigh level, right thigh, subsequent encounter; R73.01 Impaired fasting glucose
CPT/HCPCS: 83036; 99213

== ENCOUNTER 2023-03-22 06:33 | Outpatient (REF) | payer MEDICARE, OTHER, SELFPAY ==
[2023-03-22 12:02] LABS: MANUAL DIFF FLAG NO
[2023-03-22 12:11] LABS: Basophils Absolute Auto 0.1 X10*3/uL (0.0-0.2); Basophils Percent Auto 0.7 % (0-2); Eosinophils Absolute Auto 0.2 X10*3/uL (0.0-0.4); Eosinophils Percent Auto 2.2 % (0-4); Imm Gran Abs Auto 0.03 X10*3/uL (0.00-0.03); Imm Gran Pct Auto 0.3 % (0.0-0.4); Lymphocytes Absolute Auto 2.1 X10*3/uL (1.2-4.9); Lymphocytes Percent Auto 24.4 % (20-40); Mean Corpuscular HGB Conc 31.4 g/dl (31.0-36.0); Mean Corpuscular Hemoglobin 31.6 pg (27.0-33.0); Mean Corpuscular Volume 100.8 fL (80.0-98.0); Mean Platelet Volume 10.5 fL (9.4-12.4); Monocytes Absolute Auto 0.8 X10*3/uL (0.1-1.2); Monocytes Percent Auto 8.6 % (2-11); Neutrophils Absolute Auto 5.5 x10*3/uL (2.0-8.3); Neutrophils Percent Auto 63.8 % (45-73); Platelet Count 355 X10*3/uL (160-400); Red Blood Count 5.06 X10*6/uL (4.60-5.80); White Blood Count 8.7 X10*3/uL (4.8-10.8)
[2023-03-22 12:33] LABS: Alanine Aminotransferase 18 U/L (0-40); Albumin Level 3.9 g/dL (3.5-5.0); Alkaline Phosphatase 58 U/L (39-117); Anion Gap 11 (12-20); Aspartate Amino Transferase 24 U/L (5-37); Bilirubin Total 0.4 mg/dL (0.0-1.0); Blood Urea Nitrogen 17 mg/dL (9-16); Calcium 9.3 mg/dL (8.4-10.2); Carbon Dioxide 29 mmol/L (22-29); Chloride 105 mmol/L (96-108); Cholesterol 218 mg/dL (<200); Estimated Glomerular Filt Rate > 60; Glucose Random 101 mg/dL (60-115); HDL Cholesterol 45 mg/dL (>40); LDL Cholesterol Calculated 148 mg/dL (<100); Potassium 5.2 mmol/L (3.3-5.1); Sodium 140 mmol/L (135-145); Total Protein 7.1 g/dL (6.5-8.0); Triglycerides 129 mg/dL (<150)
[2023-03-22 12:43] LABS: Free T4 (Free Thyroxine) 0.83 ng/dL (0.71-1.85); Thyroid Stimulating Hormone 1.04 uIU/mL (0.32-4.0)
[2023-03-22 12:54] LABS: Folate 4.6 ng/mL (> or = 4.0); Prostate Specific Antigen Scr 0.12 ng/mL (<0.05-4.0); Vitamin B12 252 pg/mL (200-900)
[2023-03-27 05:03] LABS: Vitamin A 60 mcg/dL (38-98)
[2023-04-04 14:23] LABS: Vitamin B6 6.1 ng/mL (2.1-21.7)
== END 2023-03-22 06:34 | disposition home or self-care (01) ==
LOC: HO.HMGCLDS 06:33
PROVIDERS: PCP Internal Medicine; Visit Provider Internal Medicine
DX: E78.00 Pure hypercholesterolemia, unspecified (principal); Z12.5 Encounter for screening for malignant neoplasm of prostate
CPT/HCPCS: 36415; 80053; 80061; 82607; 82746; 84153; 84207; 84439; 84443; 84590; 85025

== ENCOUNTER 2023-04-22 09:12 | Outpatient (AMB) | payer MEDICARE, OTHER, SELFPAY ==
--- NOTE | 2023-04-22 09:16 | MHC.PC.OV ---
Vital Signs 04/22/23 09:17 Height 5 ft 7 in Weight 333 lb 2 oz BMI 52.2 BP 110/72 Blood Pressure Location Lt brachial Position Sitting Pulse 76 Pulse Source Pulse Oximeter Pulse Oximetry (%) 98 Oxygen Delivery Method Room Air Intake Visit Reasons: PE Intake Note: Patient is here today for a physical. 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: Not Required per policy Accompanied by: Self / Same As Patient Allergies No Known Allergies [No Known Allergies*] Allergy (Verified 04/22/23 09:17) Medication List - Last Reconciled 04/22/23 by Tony Francis MD sildenafil 100 mg PO DAILY PRN Tobacco use date assessed: 04/22/23 Fall risk assessment: 1 Fall in past year Last assessed Fall Risk: 04/22/23 Dental Screening Dental Screen Date: 04/22/23 Did you have a dental visit in the last 12 months?: Yes Did you have a dental problem in the last 6 months where you did not have access to dental care?: No Was dental information given to patient?: Patient has dentist HPI PE HPI Details 68-year-old obese male status post laparoscopic sleeve gastrectomy hypercholesterolemia last seen in in March 2022 coming in today for physical exam. Colonoscopy is up-to-date. Vaccination done March 2023 for flu and RSV and COVID vaccine. Review of the notes in January was seen by the nurse practitioner having an acute injury of his lower extremity slipped and fell left leg CT of the femur revealing large intramuscular hematoma likely due to avulsion of the hamstring tendon patient also had balanitis. [facility] Medical History Vitamin D deficiency Morbid (severe) obesity due to excess calories Intestinal malabsorption following gastrectomy Hearing impaired Impaired fasting glucose Osteoarthritis Hypercholesterolemia BMI 40.0-44.9, adult Malabsorption due to intolerance, not elsewhere classified Morbid obesity Surgical History History of hip replacement Hx laparoscopic cholecystectomy S/P ERCP Hx of tonsillectomy S/P laparoscopic sleeve gastrectomy Family History (Updated 04/22/23 @ 09:16 by JEFF Franklin) Father Myocardial infarct Mother No problems noted. Brother Hypertension Brother No problems noted. Sister No problems noted. Sister No problems noted. Son No problems noted. Daughter No problems noted. Daughter No problems noted. Daughter No problems noted. Social History (Updated 04/22/23 @ 09:59 by Tony Francis MD) Housing: House Alcohol intake: current Alcohol intake frequency: a few times a week Comment: once a week 2 drinks Patient Tobacco Use Status: Former Tobacco user Tobacco use type: Cigarette Years Smoked: stopped 1997 e-Cigarette/Vaping Use: Never Used Second Hand Smoke Exposure: No service: No Current occupational status: retired Cognitive needs: No Hearing needs: No Vision needs: Yes Questionnaire Thrive Questionnaire Date Thrive assessed: 02/05/23 RADHA-7 AMB Questionnaire RADHA-7 Date RADHA - 7 assessed: 02/05/23 Source: Developed by Drs. Wesley Hernandez, Nidhi Hu, Cristiano Dobson and colleagues, with an educational tiana from [email or web address]. Review of Systems Const Denies poor appetite and Denies weakness Eyes Denies no additional complaints ENT Reports Normal hearing present, Denies dizziness, Denies nasal congestion, Denies tinnitus and Denies sore throat Card Denies chest pain, Denies syncope, Denies rapid heart rate and Denies dyspnea Resp Denies cough and Denies dyspnea GI Denies change in stool character, Reports constipation, Denies diarrhea, Denies nausea and Denies vomiting Denies dysuria and Denies urinary frequency Neuro Reports Normal hearing present, Denies confusion, Denies dizziness, Denies syncope and Denies weakness Psych Denies confusion Physical exam (Primary Care) Vital Signs: Last Vital Signs Pulse 76 04/22/23 09:17 BP 110/72 04/22/23 09:17 Pulse Ox 98 04/22/23 09:17 Oxygen Delivery Method Room Air 04/22/23 09:17 BMI result Body Mass Index 52.2 Tobacco/Smoking Status: Tobacco use Status Tobacco use date assessed 04/22/23 04/22/23 09:27 Patient Tobacco Use Status Former Tobacco user 04/22/23 09:27 Tobacco use type Cigarette 04/22/23 09:27 e-Cigarette/Vaping Use Never Used 04/22/23 09:27 Thrive Assessment: Date of Thrive Assessment Date Thrive assessed 02/05/23 04/22/23 09:27 Const General: No confusion Orientation/consciousness: No confusion HENMT Head: Yes normocephalic Ears: external ears normal and TM's normal bilaterally Face and sinus: Yes normal facial exam Mouth: moist mucous membranes Throat: Yes tonsils normal Eyes Conjunctivae: conjunctivae normal Pupils: Equal, round and reactive pupils present and Pupil accommodation reflex normal Direct Ophthalmoscopy: normal light reflex Neck Neck: No lymphadenopathy Thyroid: Thyroid normal Chest Chest palpation & inspection: normal inspection of the chest Resp Effort & Inspection: normal respiratory effort and no audible wheezes Auscultation: clear to auscultation bilaterally, no crackles, no wheezes and lung sounds not diminished Cardio Rate: regular rate Rhythm: regular rhythm Peripheral pulses: radial pulses present and dorsalis pedis present GI Palpation (GI): no masses Auscultation: normal bowel sounds and normoactive bowel sounds Rectal Exam - Male: Yes deferred Skin General skin exam: no rashes or lesions noted Rashes: no rashes Neuro General: No confusion Cranial nerves: Yes Equal, round and reactive pupils present and Yes Normal hearing present Cognition (Neuro): normal cognition Gait exam (Neuro): Normal gait present Motor exam (neuro): 5/5 motor strength present throughout Deep tendon reflexes (DTR's): Right brachioradialis reflex intensity grade: 2+, Left brachioradialis reflex intensity grade: 2+, Right patellar reflex intensity grade: 2+ and Left patellar reflex intensity grade: 2+ Extrem General: No edema Assessment and Plan Assessment & Plan (1) Annual physical exam: Code(s): Z00.00 - Encounter for general adult medical examination without abnormal findings (2) S/P laparoscopic sleeve gastrectomy: Comment: with hiatal hernia repair - DOS 01/05/20 Dr. Clarke Code(s): Z98.84 - Bariatric surgery status (3) Hypercholesterolemia: Code(s): E78.00 - Pure hypercholesterolemia, unspecified Plan: Avoid fried foods, chicken skin, eggs, butter margarine, pastries and meat. Be it pork or beef they have a lot of cholesterol LDL goal of less than 130 and triglyceride of less than 150 (4) Morbid (severe) obesity due to excess calories: Code(s): E66.01 - Morbid (severe) obesity due to excess calories Plan: Diet and exercise (5) Obesity, morbid, BMI 50 or higher: Code(s): E66.01 - Morbid (severe) obesity due to excess calories Plan: Discussed my concerns about the weight with the patient and although the blood work is within normal limits. Will try to get the weight loss medication. Medications: New semaglutide (weight loss) (Wegovy) administer weeks 1 through 4 of therapy 0.25 mg (0.5 mL) subcut QWEEK 2 mL 0RF E66.01 - Morbid (severe) obesity due to excess calories semaglutide (weight loss) (Wegovy) administer weeks 5 through 8 of therapy 0.5 mg (0.5 mL) subcut QWEEK 2 mL 0RF E66.01 - Morbid (severe) obesity due to excess calories Refilled sildenafil administer 30 minutes to 4 hours before activity 100 mg PO DAILY PRN 10 tabs 5RF sexual activity N52.9 - Male erectile dysfunction, unspecified Coding Level of Care Code Est Pt Prev Care >65y(09521) Diagnoses Annual physical exam Z00.00 S/P laparoscopic sleeve gastrectomy Z98.84 Hypercholesterolemia E78.00 Morbid (severe) obesity due to excess calories E66.01 Obesity, morbid, BMI 50 or higher E66.01
[2023-04-22 09:17] VITALS: BP 110/72; PULSE 76; O2SAT 98; BMI 52.2
== END 2023-04-22 10:47 | disposition home or self-care (01) ==
PROVIDERS: Visit Provider Internal Medicine
DX: Z00.00 Encounter for general adult medical examination without abnormal findings (principal); Z98.84 Bariatric surgery status; E66.01 Morbid (severe) obesity due to excess calories; Z68.43 Body mass index [BMI] 50.0-59.9, adult; E78.00 Pure hypercholesterolemia, unspecified
CPT/HCPCS: 99397

== ENCOUNTER 2023-10-10 15:19 | Outpatient (AMB) | payer MEDICARE, OTHER, SELFPAY ==
[2023-10-10 15:20] VITALS: BP 142/70; PULSE 73; O2SAT 97; BMI 53.3
--- NOTE | 2023-10-10 15:20 | A.OFFPC_ITS ---
Vital Signs 10/10/23 15:20 Height 5 ft 7 in Weight 340 lb 0.6 oz BMI 53.3 BP 142/70 H Blood Pressure Location Lt brachial Position Sitting Pulse 73 Pulse Source Pulse Oximeter Pulse Oximetry (%) 97 Oxygen Delivery Method Room Air Intake Visit Reasons: infection Account Adjuster Required: No Allergies No Known Allergies [No Known Allergies*] Allergy (Verified 10/10/23 15:20) Medication List - Last Reconciled 10/10/23 by Tony Francis MD fluconazole (Diflucan) 2 tablets on the first day then QD for 6 days orally ketoconazole 2% 1 appl topical BID liraglutide (weight loss) (Saxenda) inject subcutaneously once daily: week 1 = 0.6 mg; week 2 = 1.2 mg; week 3 = 1.8 mg; week 4 = 2.4 mg; then 3 mg daily subcut sildenafil 100 mg PO DAILY PRN Tobacco use date assessed: 10/10/23 Fall risk assessment: No Falls in past year Last assessed Fall Risk: 10/10/23 Dental Screening Dental Screen Date: 04/22/23 HPI infection HPI Details 68-year-old morbidly obese male with a h istory of laparoscopic sleeve gastrectomy hypercholesterolemia coming in for follow-up. Last seen in 04/30/2023 rash on penis [facility] Medical History Vitamin D deficiency Morbid (severe) obesity due to excess calories Intestinal malabsorption following gastrectomy Hearing impaired Impaired fasting glucose Osteoarthritis Hypercholesterolemia BMI 40.0-44.9, adult Malabsorption due to intolerance, not elsewhere classified Morbid obesity Surgical History History of hip replacement Hx laparoscopic cholecystectomy S/P ERCP Hx of tonsillectomy S/P laparoscopic sleeve gastrectomy Family History (Updated 04/22/23 @ 09:16 by JEFF Franklin) Father Myocardial infarct Mother No problems noted. Brother Hypertension Brother No problems noted. Sister No problems noted. Sister No problems noted. Son No problems noted. Daughter No problems noted. Daughter No problems noted. Daughter No problems noted. Social History (Updated 04/22/23 @ 09:59 by Tony Francis MD) Housing: House Alcohol intake: never Comment: once a week 2 drinks Patient Tobacco Use Status: Former Tobacco user Tobacco use type: Cigarette Years Smoked: stopped 1997 e-Cigarette/Vaping Use: Never Used Second Hand Smoke Exposure: No service: No Current occupational status: retired Cognitive needs: No Hearing needs: No Vision needs: Yes Questionnaire PHQ-9 Over the last 2 weeks, how often have you been bothered by any of the following problems? 1. Little interest or pleasure in doing things: not at all 2. Feeling down, depressed, or hopeless: not at all 3. Trouble falling or staying asleep, or sleeping too much: not at all 4. Feeling tired or having little energy: not at all 5. Poor appetite or overeating: not at all 6. Feeling bad about yourself - or that you are a failure or have let yourself or your family down: not at all 7. Trouble concentrating on things, such as reading the newspaper or watching television: not at all 8. Moving or speaking so slowly that other people could have noticed. Or the opposite - being so fidgety or restless that you have been moving around a lot more than usual: not at all 9. Thoughts that you would be better off or of hurting yourself in some way: not at all Total score: 0 Depression Screening Interpretation: Negative Depression Screening Done: Yes 55764 - PHQ-9 Billing: Yes Source: Developed by Drs. Wesley Hernandez, Nidhi Hu, Cristiano Dobson and colleagues, with an educational tiana from [employer]. Thrive Questionnaire Date Thrive assessed: 10/10/23 I am a: Patient What is your living situation today?: I have a steady place to live Within the past 12 months, did the food you bought not last and you didn't have the money to get more?: Never true Within the past 12 months, did you worry whether your food would run out before you got money to buy more?: Never true Do you have trouble paying for medicines?: No Do you have trouble getting transportation to medical appointments?: No Do you have trouble paying your heating and electricity bill?: No Do you have trouble taking care of your child, family member or friend?: No Do you have trouble with day-to-day activities such as bathing, preparing meals, shopping, managing finances, etc.?: No Are you currently unemployed and looking for a job?: No Are you interested in more education?: No Please select the resources that you would like help with: None Currently or been in a relationship where the following occur: no concerns reported THRIVE Score: 0 AUDIT C Alcohol Use Questionnaire (AUDIT-C) 1. How often do you have a drink containing alcohol?: Never 3. How often do you have six or more drinks on one occasion?: Never Total Score: 0 RADHA-7 AMB Questionnaire RADHA-7 Date RADHA - 7 assessed: 10/10/23 Feeling nervous, anxious, or on edge: 0 = Not at all Not being able to stop or control worryin = Not at all Worrying too much about different things: 0 = Not at all Trouble relaxin = Not at all Being so restless that it is hard to sit still: 0 = Not at all Becoming easily annoyed or irritable: 0 = Not at all Feeling afraid as if something awful might happen: 0 = Not at all Total RADHA-7 score (0-4 normal; 5-9 mild; 10-14 moderate; 15-21 severe): 0 Source: Developed by Drs. Wesley Hernandez, Nidhi Hu, Cristiano Dobson and colleagues, with an educational tiana from [employer]. RADHA-7 Assessment Billing RADHA-7 Assessment Tool: RADHA-7 Assessment 06597 Physical exam (Primary Care) Vital Signs: Last Vital Signs Pulse 73 10/10/23 15:20 BP 142/70 H 10/10/23 15:20 Pulse Ox 97 10/10/23 15:20 Oxygen Delivery Method Room Air 10/10/23 15:20 BMI result Body Mass Index 53.3 Tobacco/Smoking Status: Tobacco use Status Tobacco use date assessed 10/10/23 10/10/23 15:21 Patient Tobacco Use Status Former Tobacco user 10/10/23 15:21 Tobacco use type Cigarette 10/10/23 15:21 e-Cigarette/Vaping Use Never Used 10/10/23 15:21 PHQ-9: PHQ-9 Score PHQ-9: Total score 0 10/10/23 15:21 Depression Screening Interpretation: Negative Thrive Assessment: Date of Thrive Assessment Date Thrive assessed 10/10/23 10/10/23 15:21 Currently or been in a relationship where the following occur: no concerns reported Const General: alert; No acute distress Eyes Conjunctivae: conjunctivae normal Resp Auscultation: clear to auscultation bilaterally Cardio Rate: regular rate Rhythm: regular rhythm GI Inspection: Yes normal to inspection Other: Noted erythema on the glans with fissures on the prep use with swelling Extrem General: Yes normal to inspection and No edema Assessment and Plan Assessment & Plan (1) Obesity, morbid, BMI 50 or higher: Code(s): E66.01 - Morbid (severe) obesity due to excess calories Plan: Diet and exercise (2) S/P laparoscopic sleeve gastrectomy: Comment: with hiatal hernia repair - DOS 01/05/20 Dr. Clarke Code(s): Z98.84 - Bariatric surgery status Plan: diet and exercise (3) Balanitis: Code(s): N48.1 - Balanitis Plan: Advised blood work to check for blood sugars, with the area being moist all the time fungal infection will continue to reoccur. Referral to urology done meanwhile antifungal cream sent in as well as Diflucan (4) Urinary incontinence: Code(s): R32 - Unspecified urinary incontinence Plan: Ultrasound of the bladder requested. Orders: Orders Free T4 (Free Thyroxine) Today E66.01 - Morbid (severe) obesity due to excess calories US bladder Today R32 - Unspecified urinary incontinence Complete Blood Count Auto Diff Today E66.01 - Morbid (severe) obesity due to excess calories Comprehensive Met. Panel Today E66.01 - Morbid (severe) obesity due to excess calories Thyroid Stimulating Hormone Today E66.01 - Morbid (severe) obesity due to excess calories Lipid Panel Today E66.01 - Morbid (severe) obesity due to excess calories, E78.00 - Pure hypercholesterolemia, unspecified UA CC w/rflx Micro + Cult Today R30.0 - Dysuria, R32 - Unspecified urinary incontinence Referrals Urology Referral N48.1 - Balanitis Medications: New fluconazole (Diflucan) 2 tablets on the first day then QD for 6 days orally 8 tabs 0RF ketoconazole 2% 1 appl topical BID 60 grams 0RF N48.1 - Balanitis Discontinued nystatin Discontinued Reason: Doctor's Order 1 appl topical BID 30 grams 0RF E66.01 - Morbid (severe) obesity due to excess calories Coding Level of Care Code Est Pt Level 4 (54917) Diagnoses Obesity, morbid, BMI 50 or higher E66.01 S/P laparoscopic sleeve gastrectomy Z98.84 Balanitis N48.1 Urinary incontinence R32 Additional Codes RADHA-7 Assessment Billing - RADAH-7 Assessment Tool: RADHA-7 Assessment 72851 ([id number])
== END 2023-10-10 17:12 | disposition home or self-care (01) ==
PROVIDERS: PCP Internal Medicine; Visit Provider Internal Medicine
DX: N48.1 Balanitis (principal); E66.01 Morbid (severe) obesity due to excess calories; Z68.43 Body mass index [BMI] 50.0-59.9, adult; Z98.84 Bariatric surgery status; R32 Unspecified urinary incontinence
CPT/HCPCS: 99214

== ENCOUNTER 2023-10-15 06:09 | Outpatient (REF) | payer MEDICARE, OTHER, SELFPAY ==
[2023-10-15 06:18] LABS: MANUAL DIFF FLAG NO
[2023-10-15 07:51] LABS: Basophils Absolute Auto 0.1 X10*3/uL (0.0-0.2); Basophils Percent Auto 0.6 % (0-2); Eosinophils Absolute Auto 0.3 X10*3/uL (0.0-0.4); Eosinophils Percent Auto 3.1 % (0-4); Hematocrit 49.7 % (42.0-52.0); Hemoglobin 16.2 g/dl (14.0-18.0); Imm Gran Abs Auto 0.05 X10*3/uL (0.00-0.03); Imm Gran Pct Auto 0.6 % (0.0-0.4); Lymphocytes Absolute Auto 2.2 X10*3/uL (1.2-4.9); Lymphocytes Percent Auto 25.2 % (20-40); Mean Corpuscular HGB Conc 32.6 g/dl (31.0-36.0); Mean Corpuscular Hemoglobin 32.4 pg (27.0-33.0); Mean Corpuscular Volume 99.4 fL (80.0-98.0); Mean Platelet Volume 10.4 fL (9.4-12.4); Monocytes Absolute Auto 0.9 X10*3/uL (0.1-1.2); Monocytes Percent Auto 9.9 % (2-11); Neutrophils Absolute Auto 5.4 x10*3/uL (2.0-8.3); Neutrophils Percent Auto 60.6 % (45-73); Platelet Count 324 X10*3/uL (160-400); Red Cell Distribution Width 13.4 % (11.0-16.0); White Blood Count 8.8 X10*3/uL (4.8-10.8)
[2023-10-15 08:11] LABS: Alanine Aminotransferase 19 U/L (0-40); Albumin Level 3.9 g/dL (3.5-5.0); Alkaline Phosphatase 57 U/L (39-117); Anion Gap 12 (12-20); Aspartate Amino Transferase 20 U/L (5-37); Bilirubin Total 0.6 mg/dL (0.0-1.0); Blood Urea Nitrogen 18 mg/dL (9-16); Calcium 9.2 mg/dL (8.4-10.2); Carbon Dioxide 26 mmol/L (22-29); Chloride 106 mmol/L (96-108); Cholesterol 188 mg/dL (<200); Estimated Glomerular Filt Rate > 60; Glucose Random 104 mg/dL (60-115); HDL Cholesterol 39 mg/dL (>40); LDL Cholesterol Calculated 121 mg/dL (<100); Potassium 4.1 mmol/L (3.3-5.1); Sodium 140 mmol/L (135-145); Total Protein 6.8 g/dL (6.5-8.0); Triglycerides 141 mg/dL (<150)
[2023-10-15 08:20] LABS: Appearance Urine Clear; Color Urine Yellow; Glucose Urine UA Negative (Negative); Leukocyte Esterase Urine Trace (Negative); Nitrite Urine Negative (Negative); PH 5.5 (5.0-9.0); UMIC TRIGGER UACC YES; Urine Blood Negative (Negative); Urine Ketones Negative (Negative); Urine Protein Negative (Neg-Trace)
[2023-10-15 08:25] LABS: Free T4 (Free Thyroxine) 0.91 ng/dL (0.71-1.85); Thyroid Stimulating Hormone 0.65 uIU/mL (0.32-4.0)
[2023-10-15 08:26] LABS: Bacteria Urine None Seen (None Seen); Hyaline Casts Urine 0-2 /LPF (0-2); RBC Urine 0-2 /HPF (0-2); Squamous Epithelial Cell Urine 0-2 /HPF (0-2); WBC Urine 0-5 /HPF (0-5)
== END 2023-10-15 06:10 | disposition home or self-care (01) ==
LOC: HO.LAB 06:09
PROVIDERS: PCP Internal Medicine; Visit Provider Internal Medicine
DX: E66.01 Morbid (severe) obesity due to excess calories (principal); E78.00 Pure hypercholesterolemia, unspecified
CPT/HCPCS: 36415; 80053; 80061; 81001; 84439; 84443; 85025

== ENCOUNTER 2023-10-21 09:52 | Outpatient (REF) | payer MEDICARE, OTHER, SELFPAY ==
--- NOTE | ~2023-10-21 | US_ITS ---
EXAMINATION: US PELVIS LIMITED (BLADDER) CLINICAL INFORMATION: Unspecified urinary incontinence. COMPARISON: None available. TECHNIQUE: Real-time imaging of the bladder. FINDINGS: BLADDER: Well distended and normal. Left ureteral jet is demonstrated; right is not. Prevoid bladder volume is 147 mL. Postvoid bladder volume is 13.9 mL. ADDITIONAL FINDINGS: Prostate at upper limits of normal/borderline enlarged measuring 25 mL. A small median lobe can be seen protruding into the bladder. US/US bladder IMPRESSION: Normal-appearing bladder with prostate at upper limits of normal in size as described above.
== END 2023-10-21 09:53 | disposition home or self-care (01) ==
LOC: HO.HMGCX 09:52
PROVIDERS: PCP Internal Medicine; Visit Provider Internal Medicine
DX: R32 Unspecified urinary incontinence (principal)
CPT/HCPCS: 76857

== ENCOUNTER 2023-11-20 13:46 | Outpatient (AMB) | payer MEDICARE, OTHER, SELFPAY ==
--- NOTE | 2023-11-20 14:12 | A.OFFVIS_ITS ---
Intake Visit Reasons: balanitis/ urinary incontinence Intake Note: New Patient is present for Balanitis/Urinary Incontinence/Erectile Dysfunction Urology Med: PCP prescribes Sildenafil 100mg Antibiotic Allergy: None Blood Thinner: none Recent PSA- 03/2023 Recent Bladder Ultrasound- 10/21/2023 Patient states that he has been dealing with Balanitis for about 3 months Patient states he will go to urinate and just when he is done few minutes later he will have accident PVR: 34ML Chuck Splitter Required: No Allergies No Known Allergies [No Known Allergies*] Allergy (Verified 11/20/23 22:33) Medication List - Last Reconciled 11/20/23 by JOE Vicente-JOHNATHON clotrimazole-betamethasone 1-0.05 % 1 appl topical BID 4 weeks fluconazole (Diflucan) 2 tablets on the first day then QD for 6 days orally liraglutide (weight loss) (Saxenda) inject subcutaneously once daily: week 1 = 0.6 mg; week 2 = 1.2 mg; week 3 = 1.8 mg; week 4 = 2.4 mg; then 3 mg daily subcut nystatin 1 appl topical TID sildenafil 100 mg PO DAILY PRN tadalafil (Cialis) 10 mg PO .PRN 30 days tadalafil (Cialis) 5 mg PO DAILY 90 days HPI Comments Details: Shamar is a very pleasant 68-year-old male patient of Dr. Francis. He has a past medical history of erectile dysfunction, morbid obesity, vitamin-D deficiency, hearing impaired, osteoarthritis, and hypercholesteremia. He presents to the office today as a new patient for balanitis. In discussion with the patient today he reports ongoing issues with penile rash over the last 3 months at which time he followed up with his PCP and was given fluconazole cream however has had no improvement therefore urology referral was made for further assessment evaluation. In assessment of the patient today the penis is circumcised, there is redness and irritation noted throughout the head, shaft, and body of the penis. It appears patient is also with irritation throughout the pubic area. Patient reports feeling this is related to his ongoing issues with urinary dribbling in review of patient's chart it appears bladder do ultrasound has been ordered and performed. These results reviewed with the patient today. The bladder is well distended and normal. Pre void bladder volume is approximately 145 mL. Postvoid bladder volume is approximately 15 mL. Prostate is upper limits of normal/borderline measuring approximately 25 mL. A small median lobe can be seen protruding into the bladder. PSA 08/30 0.1, 04/03 0.1. Discussed at length potential causes of urinary dribbling. He also reports being on p.r.n. Viagra prescribed by PCP and has felt this to be somewhat affective however is enquiring further treatment options for erectile dysfunction. When asked he does report libido however finds it difficult to maintain his erections. However he is able to obtain erections. He otherwise denies urinary urgency, urinary frequency, nocturia, hematuria, dysuria, foul smelling urine, flank pain, fever, and or chills. In office urinalysis results reviewed with the patient today. PVR 34 mLs. He otherwise offers no other issues or concerns at this time. [facility] Medical History Vitamin D deficiency Morbid (severe) obesity due to excess calories Intestinal malabsorption following gastrectomy Hearing impaired Impaired fasting glucose Osteoarthritis Hypercholesterolemia BMI 40.0-44.9, adult Malabsorption due to intolerance, not elsewhere classified Morbid obesity Surgical History History of hip replacement Hx laparoscopic cholecystectomy S/P ERCP Hx of tonsillectomy S/P laparoscopic sleeve gastrectomy Family History (Updated 04/22/23 @ 09:16 by JEFF Franklin) Father Myocardial infarct Mother No problems noted. Brother Hypertension Brother No problems noted. Sister No problems noted. Sister No problems noted. Son No problems noted. Daughter No problems noted. Daughter No problems noted. Daughter No problems noted. Social History (Updated 04/22/23 @ 09:59 by Tony Francis MD) Housing: House Alcohol intake: never Comment: once a week 2 drinks Patient Tobacco Use Status: Former Tobacco user Tobacco use type: Cigarette Years Smoked: stopped 1997 e-Cigarette/Vaping Use: Never Used Second Hand Smoke Exposure: No service: No Current occupational status: retired Cognitive needs: No Hearing needs: No Vision needs: Yes Review of Systems Const Reports no additional complaints Eyes Reports no additional complaints ENT Reports as per HPI Card Reports as per HPI Resp Reports no additional complaints GI Reports no additional complaints Reports as per [facility] Musc Reports as per [facility] Skin/Breast Reports as per HPI Neuro Reports no additional complaints Psych Reports no additional complaints Endo Reports no additional complaints Flavio/Lymph Reports no additional complaints Aller/Immun Reports no additional complaints Physical Exam Const General: cooperative, comfortable, no acute distress, well developed, alert and awake Nutritional Appearance: obese Orientation/consciousness: patient oriented x3 Limitations: no limitations HEENT Head: Yes normal to inspection, Yes normocephalic and Yes atraumatic Ears: hearing grossly normal bilaterally Eyes General: appearance normal, both eyes and all related structures Neck Neck: Yes normal visual inspection and Yes trachea midline Chest Chest palpation & inspection: normal inspection of the chest Resp Effort & Inspection: normal respiratory effort and able to speak in complete sentences Cardio Rate: regular rate GI Inspection: Yes normal to inspection Other: as per HPI General: Yes no CVA tenderness Penis: circumcised Meatus: meatus normal Scrotum: scrotum normal Testes: Testes normal Back/Spine/Pelvis Back: no CVA tenderness Skin General skin exam: no rashes or lesions noted Neuro General: patient oriented x3 Extrem General: Yes normal to inspection Psych Appearance: grossly normal and well kempt Mental Status: mental status grossly normal Speech and movement: Normal speech and movement present and Clear speech present Affect: normal affect Attitude: cooperative Thought process: Normal thought process present Thought content: Normal thought content present Insight: Fair insight present (Psych) Judgement: Fair judgement present (Psych) Office Procedures Post Void Residual Post Residual Void Post Void Residual (PVR): 34 88180-Fmim Void Residual by ultrasound Results AMB Urinalysis, Automated UA Leukoctes 0 Marques/uL Last Edit by JEFF Bailey on 11/20/23 14:26 UA Nitrite Negative Last Edit by JEFF Bailey on 11/20/23 14:26 UA Urobilinogen 0.2 mg/dL Last Edit by JEFF Bailey on 11/20/23 14:2 6 UA Protein 0 mg/dL Last Edit by JEFF Bailey on 11/20/23 14:26 UA pH 5.5 Last Edit by JEFF Bailey on 11/20/23 14:26 UA Blood 0 Yassine/uL Last Edit by JEFF Bailey on 11/20/23 14:26 UA Specific [place] 1.025 Last Edit by Nina Diggs, RMA on 11/20/23 14: 26 UA Ketone Negative Last Edit by Nina Diggs RMA on 11/20/23 14:26 UA Bilirubin 0 mg/dL Last Edit by Nina Diggs, RMA on 11/20/23 14:26 UA Glucose 0 mg/dL Last Edit by Nina Diggs, A on 11/20/23 14:26 Results Reviewed Results Reviewed: Laboratory Last Values Urine pH (Auto) 5.5 11/20/23 14:18 Specific [place] (Auto) 1.025 11/20/23 14:18 Urine Protein (Auto) 0 mg/dL 11/20/23 14:18 Glucose (UA)(Auto) 0 mg/dL 11/20/23 14:18 Urine Ketones (Auto) Negative 11/20/23 14:18 Urine Blood (Auto) 0 Yassine/uL 11/20/23 14:18 Urine Nitrite (Auto) Negative 11/20/23 14:18 Urine Bilirubin (Auto) 0 mg/dL 11/20/23 14:18 Urine Urobilinogen (Auto) 0.2 mg/dL 11/20/23 14:18 Leukocyte Esterase (Auto) 0 Marques/uL 11/20/23 14:18 Assessment & Plan Assessment & Plan (1) Urinary incontinence: Code(s): R32 - Unspecified urinary incontinence Category: Medical (2) Erectile dysfunction: Code(s): N52.9 - Male erectile dysfunction, unspecified Category: Medical (3) Balanitis: Code(s): N48.1 - Balanitis Category: Medical Plan In office urinalysis results reviewed with the patient today; as noted above. PVR 34 mL. Stop as needed Viagra. Start low-dose tadalafil as discussed and prescribed. Start clotrimazole-betamethasone 1-0.05 % as discussed and prescribed. Prescription provided for p.r.n. tadalafil 1 hour prior to sexual activity. Discussed, educated, and stressed the importance of weight loss for urological issues as well as overall health and well-being. Discussed lifestyle modifications to assist with erectile dysfunction. Recent bladder ultrasound results reviewed with the patient today; as noted above. Recent PSA results reviewed with the patient today; as noted above. Discussed pelvic floor exercises for urinary dribbling; information provided. Follow-up in 1-3 months; or sooner with any issues, concerns, and or questions. Orders: Orders AMB Post Void Residual by ultrasound Today R32 - Unspecified urinary incontinence AMB Urinalysis Automated Today Z13.9 - Encounter for screening, unspecified Medications: New clotrimazole-betamethasone 1-0.05 % Apply thin coat 2 times per day 1 appl topical BID 4 weeks 45 grams 0RF N48.1 - Balanitis tadalafil (Cialis) Take 1-2 tablets 1 hour prior to sexual activity do not exceed more than 3 times per week. 10 mg PO .PRN 30 days 20 tabs 2RF sexual activity nystatin apply to affected area 1 appl topical TID 60 grams 0RF tadalafil (Cialis) [id number] [facility] [id number] Member [id number] 5 mg PO DAILY 90 days 90 tabs 0RF Discontinued ketoconazole 2% Discontinued Reason: Doctor's Order 1 appl topical BID 60 grams 0RF N48.1 - Balanitis sildenafil administer 30 minutes to 4 hours before activity Discontinued Reason: Doctor's Order 100 mg PO DAILY PRN 10 tabs 5RF sexual activity N52.9 - Male erectile dysfunction, unspecified Patient Instructions: The patient had an opportunity to ask questions regarding the treatment plan. All questions were answered. Physical exam, labs, and imaging were discussed and reviewed in detail. As well as risks, benefits, and discussion of treatment choices. No major barriers to understanding were identified. The patient expressed understanding and agreement with the above treatment plan. The patient was made aware they should contact our office by phone for worsening of their current condition, the appearance of new symptoms, or with any questions or concerns. Compliance is encouraged with any medications and follow up testing that is ordered. It is a privilege to be allowed the opportunity to participate in? your urological care.? Again, if you have any questions or concerns If you have any questions or concerns please do not hesitate to contact me. The office is [phone]. This note is constructed using voice recognition software. While every effort has been made to ensure accuracy retail services professional errors may have been included. Yours sincerely, Bertha Castro, [employer] Coding Level of Care Code New Pt Level 4 (67040) Diagnoses Urinary incontinence R32 Erectile dysfunction N52.9 Balanitis N48.1 CPT Codes Post Residual Void - PVR CPT Code: 95226-Gtjz Void Residual by ultrasound ([id number])
== END 2023-11-20 14:46 | disposition home or self-care (01) ==
PROVIDERS: PCP Internal Medicine; Visit Provider Nurse Practitioner Family
DX: R32 Unspecified urinary incontinence (principal); N52.9 Male erectile dysfunction, unspecified; N48.1 Balanitis; Z13.9 Encounter for screening, unspecified
CPT/HCPCS: 99204

== ENCOUNTER → 2023-11-20 13:46 | Outpatient (BNVA) | payer MEDICARE, OTHER, SELFPAY | PROVIDERS: PCP Internal Medicine; Visit Provider Nurse Practitioner Family | DX: R32 Unspecified urinary incontinence (principal); N52.9 Male erectile dysfunction, unspecified; N48.1 Balanitis | CPT/HCPCS: 51798; 81003; 99202 ==

== ENCOUNTER 2024-02-09 08:30 | Outpatient (AMB) | payer MEDICARE, OTHER, SELFPAY ==
--- NOTE | 2024-02-09 08:33 | MHC.OFFVIS ---
Intake Visit Reasons: 2m follow up Intake Note: Patient is present for 2m f/u Urology Medication:clotrimazole, tadalafil Antibiotic Allergy:none Blood Thinner:none Area Relief Pilot Required: No Allergies No Known Allergies [No Known Allergies*] Allergy (Verified 02/09/24 09:11) Medication List - Last Reconciled 02/09/24 by JOSÉ MIGUEL Vicente fluconazole (Diflucan) 2 tablets on the first day then QD for 6 days orally liraglutide (weight loss) (Saxenda) inject subcutaneously once daily: week 1 = 0.6 mg; week 2 = 1.2 mg; week 3 = 1.8 mg; week 4 = 2.4 mg; then 3 mg daily subcut nystatin 1 appl topical TID tadalafil (Cialis) 10 mg PO .PRN 30 days tadalafil (Cialis) 5 mg PO DAILY 90 days HPI Comments Details: Shamar is a very pleasant 68-year-old male patient of Dr. Francis. He has a past medical history of erectile dysfunction, morbid obesity, vitamin-D deficiency, hearing impaired, osteoarthritis, and hypercholesteremia. He presents to the office today for follow-up. Of note, patient was seen approximately 2 months ago as a new patient for balanitis and erectile dysfunction. In discussion with the patient today reports significant improvement in balanitis and has since completed clotrimazolw-betamethasone as prescribed. He does continue to report urinary dribbling and split urinary stream. We discussed further workup to include in office cystoscopy and or trial of alpha-vamshi. We also discussed importance of pelvic floor exercises to assist with urinary dribbling. He reports noting somewhat improvement in his erections with daily Cialis. Previous workup has included a bladder ultrasound 11/02 noting the bladder is well distended and normal. Pre void bladder volume is approximately 145 mL. Postvoid bladder volume is approximately 15 mL. Prostate is upper limits of normal/borderline measuring approximately 25 mL. A small median lobe can be seen protruding into the bladder. PSA 08/30 0.1, 04/03 0.1. Discussed at length potential causes of urinary dribbling and split urinary stream. When asked he does report libido however finds it difficult to maintain his erections. However he is able to obtain erections. He otherwise denies urinary urgency, urinary frequency, nocturia, hematuria, dysuria, foul smelling urine, flank pain, fever, and or chills. In office urinalysis results reviewed with the patient today. He otherwise offers no other issues or concerns at this time. [facility] Medical History Vitamin D deficiency Morbid (severe) obesity due to excess calories Intestinal malabsorption following gastrectomy Hearing impaired Impaired fasting glucose Osteoarthritis Hypercholesterolemia BMI 40.0-44.9, adult Malabsorption due to intolerance, not elsewhere classified Morbid obesity Surgical History History of hip replacement Hx laparoscopic cholecystectomy S/P ERCP Hx of tonsillectomy S/P laparoscopic sleeve gastrectomy Family History (Updated 04/22/23 @ 09:16 by JEFF Franklin) Father Myocardial infarct Mother No problems noted. Brother Hypertension Brother No problems noted. Sister No problems noted. Sister No problems noted. Son No problems noted. Daughter No problems noted. Daughter No problems noted. Daughter No problems noted. Social History (Updated 04/22/23 @ 09:59 by Tony Francis MD) Housing: House Alcohol intake: never Comment: once a week 2 drinks Patient Tobacco Use Status: Former Tobacco user Tobacco use type: Cigarette Years Smoked: stopped 1997 e-Cigarette/Vaping Use: Never Used Second Hand Smoke Exposure: No service: No Current occupational status: retired Cognitive needs: No Hearing needs: No Vision needs: Yes Review of Systems Const Reports no additional complaints Eyes Reports no additional complaints ENT Reports as per HPI Card Reports as per HPI Resp Reports no additional complaints GI Reports no additional complaints Reports as per HPI Musc Reports as per HPI Skin/Breast Reports as per HPI Neuro Reports no additional complaints Psych Reports no additional complaints Endo Reports no additional complaints Flavio/Lymph Reports no additional complaints Aller/Immun Reports no additional complaints Physical Exam Const General: cooperative, comfortable, no acute distress, well developed, alert and awake Nutritional Appearance: obese Orientation/consciousness: patient oriented x3 Limitations: no limitations HEENT Head: Yes normal to inspection, Yes normocephalic and Yes atraumatic Ears: hearing grossly normal bilaterally Eyes General: appearance normal, both eyes and all related structures Neck Neck: Yes normal visual inspection and Yes trachea midline Chest Chest palpation & inspection: normal inspection of the chest Resp Effort & Inspection: normal respiratory effort and able to speak in complete sentences Cardio Rate: regular rate GI Inspection: Yes normal to inspection Other: as per HPI General: Yes no CVA tenderness Penis: circumcised Meatus: meatus normal Scrotum: scrotum normal Testes: Testes normal Back/Spine/Pelvis Back: no CVA tenderness Skin General skin exam: no rashes or lesions noted Neuro General: patient oriented x3 Extrem General: Yes normal to inspection Psych Appearance: grossly normal and well kempt Mental Status: mental status grossly normal Speech and movement: Normal speech and movement present and Clear speech present Affect: normal affect Attitude: cooperative Thought process: Normal thought process present Thought content: Normal thought content present Insight: Fair insight present (Psych) Judgement: Fair judgement present (Psych) Results AMB Urinalysis, Automated UA Leukoctes 0 Marques/uL Last Edit by HARDIK Baron on 02/09/24 08:48 UA Nitrite Negative Last Edit by HARDIK Baron on 02/09/24 08:48 UA Urobilinogen 0.2 mg/dL Last Edit by HARDIK Baron on 02/09/24 08:48 UA Protein 15 mg/dL Last Edit by HARDIK Baron on 02/09/24 08:48 UA pH 5.5 Last Edit by HARDIK Baron on 02/09/24 08:48 UA Blood 10 Yassine/uL Last Edit by HARDIK Baron on 02/09/24 08:48 UA Specific Mcloud 1.020 Last Edit by HARDIK Baron on 02/09/24 08:48 UA Ketone Negative Last Edit by HARDIK Baron on 02/09/24 08:48 UA Bilirubin 0 mg/dL Last Edit by HARDIK Baron on 02/09/24 08:48 UA Glucose 0 mg/dL Last Edit by HARDIK Baron on 02/09/24 08:48 Results Reviewed Results Reviewed: Laboratory Last Values Urine pH (Auto) 5.5 02/09/24 08:47 Specific Mcloud (Auto) 1.020 02/09/24 08:47 Urine Protein (Auto) 15 mg/dL 02/09/24 08:47 Glucose (UA)(Auto) 0 mg/dL 02/09/24 08:47 Urine Ketones (Auto) Negative 02/09/24 08:47 Urine Blood (Auto) 10 Yassine/uL 02/09/24 08:47 Urine Nitrite (Auto) Negative 02/09/24 08:47 Urine Bilirubin (Auto) 0 mg/dL 02/09/24 08:47 Urine Urobilinogen (Auto) 0.2 mg/dL 02/09/24 08:47 Leukocyte Esterase (Auto) 0 Marques/uL 02/09/24 08:47 Assessment & Plan Assessment & Plan (1) Balanitis: Code(s): N48.1 - Balanitis Category: Medical (2) Erectile dysfunction: Code(s): N52.9 - Male erectile dysfunction, unspecified Category: Medical (3) Urinary dribbling: Code(s): N39.43 - Post-void dribbling Category: Medical (4) Split urinary stream: Code(s): R39.13 - Splitting of urinary stream Category: Medical Plan In office urinalysis results reviewed with the patient today; as noted above. Continue daily Cialis with p.r.n. dosing as discussed and prescribed; refill provided Patient with significant improvement in balanitis. We discussed at length potential causes of urinary dribbling, split urinary stream, ED, and balanitis. Discussed, educated, and stressed the importance of weight loss for urological issues as well as overall health and well-being. Discussed lifestyle modifications to assist with erectile dysfunction. Discussed pelvic floor exercises for urinary dribbling; information provided. Will obtain PSA in 6 months. Discussed possible near future in office cystoscopy and or urodynamics for further assessment evaluation. Follow-up in 6 months; or sooner with any issues, concerns, and or questions. Orders: Orders AMB Urinalysis Automated Today Z13.9 - Encounter for screening, unspecified Prostate Specific Antigen Today N40.0 - Benign prostatic hyperplasia without lower urinary tract symptoms Medications: Refilled tadalafil (Cialis) Take 1-2 tablets 1 hour prior to sexual activity do not exceed more than 3 times per week. 10 mg PO .PRN 30 days 20 tabs 2RF sexual activity tadalafil (Cialis) [id number] [facility] [id number] Member [id number] 5 mg PO DAILY 90 days 90 tabs 0RF Patient Instructions: The patient had an opportunity to ask questions regarding the treatment plan. All questions were answered. Physical exam, labs, and imaging were discussed and reviewed in detail. As well as risks, benefits, and discussion of treatment choices. No major barriers to understanding were identified. The patient expressed understanding and agreement with the above treatment plan. The patient was made aware they should contact our office by phone for worsening of their current condition, the appearance of new symptoms, or with any questions or concerns. Compliance is encouraged with any medications and follow up testing that is ordered. It is a privilege to be allowed the opportunity to participate in? your urological care.? Again, if you have any questions or concerns If you have any questions or concerns please do not hesitate to contact me. The office is [phone]. This note is constructed using voice recognition software. 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 Yours sincerely, JOSÉ MIGUEL Vicente Coding Level of Care Code Est Pt Level 3 (56182) Diagnoses Balanitis N48.1 Erectile dysfunction N52.9 Urinary dribbling N39.43 Split urinary stream R39.13
== END 2024-02-09 09:20 | disposition home or self-care (01) ==
PROVIDERS: PCP Internal Medicine; Visit Provider Nurse Practitioner Family
DX: N48.1 Balanitis (principal); N52.9 Male erectile dysfunction, unspecified; N39.43 Post-void dribbling; R39.13 Splitting of urinary stream; Z13.9 Encounter for screening, unspecified
CPT/HCPCS: 99213

== ENCOUNTER → 2024-02-09 08:30 | Outpatient (BNVA) | payer MEDICARE, OTHER, SELFPAY | PROVIDERS: PCP Internal Medicine; Visit Provider Nurse Practitioner Family | DX: N48.1 Balanitis (principal); N52.9 Male erectile dysfunction, unspecified; N39.43 Post-void dribbling; R39.13 Splitting of urinary stream | CPT/HCPCS: 81003; 99212 ==

== ENCOUNTER 2024-04-06 06:07 | Outpatient (REF) | payer MEDICARE, OTHER, SELFPAY ==
[2024-04-06 06:20] LABS: MANUAL DIFF FLAG NO
[2024-04-06 07:21] LABS: Basophils Absolute Auto 0.1 X10*3/uL (0.0-0.2); Basophils Percent Auto 0.6 % (0-2); Eosinophils Absolute Auto 0.2 X10*3/uL (0.0-0.4); Eosinophils Percent Auto 2.7 % (0-4); Hematocrit 50.2 % (42.0-52.0); Hemoglobin 16.3 g/dl (14.0-18.0); Imm Gran Abs Auto 0.03 X10*3/uL (0.00-0.03); Imm Gran Pct Auto 0.4 % (0.0-0.4); Lymphocytes Absolute Auto 2.1 X10*3/uL (1.2-4.9); Lymphocytes Percent Auto 23.9 % (20-40); Mean Corpuscular HGB Conc 32.5 g/dl (31.0-36.0); Mean Corpuscular Hemoglobin 32.4 pg (27.0-33.0); Mean Corpuscular Volume 99.8 fL (80.0-98.0); Mean Platelet Volume 10.3 fL (9.4-12.4); Monocytes Absolute Auto 0.8 X10*3/uL (0.1-1.2); Monocytes Percent Auto 9.2 % (2-11); Neutrophils Absolute Auto 5.4 x10*3/uL (2.0-8.3); Neutrophils Percent Auto 63.2 % (45-73); Platelet Count 308 X10*3/uL (160-400); Red Blood Count 5.03 X10*6/uL (4.60-5.80); Red Cell Distribution Width 13.3 % (11.0-16.0); White Blood Count 8.6 X10*3/uL (4.8-10.8)
[2024-04-06 07:29] LABS: Estimated Average Glucose 123 mg/dL; Hemoglobin A1C 166.7805 umol/L; Hemoglobin A1c % 5.9 % (<6.0); Total Hemoglobin (HGBA1C) 4076.6549 umol/L
[2024-04-06 07:50] LABS: Alanine Aminotransferase 22 U/L (0-40); Albumin Level 3.8 g/dL (3.5-5.0); Alkaline Phosphatase 65 U/L (39-117); Anion Gap 13 (12-20); Aspartate Amino Transferase 28 U/L (5-37); Bilirubin Total 0.6 mg/dL (0.0-1.0); Blood Urea Nitrogen 14 mg/dL (9-16); Calcium 9.1 mg/dL (8.4-10.2); Carbon Dioxide 24 mmol/L (22-29); Chloride 105 mmol/L (96-108); Cholesterol 205 mg/dL (<200); Estimated Glomerular Filt Rate > 60; Glucose Random 108 mg/dL (60-115); HDL Cholesterol 39 mg/dL (>40); LDL Cholesterol Calculated 139 mg/dL (<100); Magnesium 2.2 mg/dL (1.6-2.6); Potassium 4.3 mmol/L (3.3-5.1); Sodium 138 mmol/L (135-145); Total Protein 6.7 g/dL (6.5-8.0); Triglycerides 139 mg/dL (<150)
[2024-04-06 08:11] LABS: Free T4 (Free Thyroxine) 0.97 ng/dL (0.71-1.85); Thyroid Stimulating Hormone 0.81 uIU/mL (0.32-4.0)
[2024-04-06 08:15] LABS: Folate 6.6 ng/mL (> or = 4.0); Prostate Specific Antigen Scr 0.11 ng/mL (<0.05-4.0); Vitamin B12 290 pg/mL (200-900)
== END 2024-04-06 06:08 | disposition home or self-care (01) ==
LOC: HO.LAB 06:07
PROVIDERS: PCP Internal Medicine; Visit Provider Internal Medicine
DX: E78.00 Pure hypercholesterolemia, unspecified (principal); Z12.5 Encounter for screening for malignant neoplasm of prostate; Z13.1 Encounter for screening for diabetes mellitus
CPT/HCPCS: 36415; 80053; 80061; 82607; 82746; 83036; 83735; 84153; 84439; 84443; 85025

== ENCOUNTER 2024-05-10 10:48 | Outpatient (AMB) | payer MEDICARE, OTHER, SELFPAY ==
[2024-05-10 10:59] VITALS: BP 146/88; PULSE 73; O2SAT 95; BMI 54.8
--- NOTE | 2024-05-10 10:59 | A.OFFPC_ITS ---
Vital Signs 05/10/24 10:59 05/10/24 11:20 Height 5 ft 7 in Weight 350 lb BMI 54.8 BP 146/88 H 128/70 Blood Pressure Location Lt brachial Lt brachial Position Sitting Sitting Pulse 73 Pulse Source Pulse Oximeter Pulse Oximetry (%) 95 Oxygen Delivery Method Room Air Intake Visit Reasons: annual exam Allergies No Known Allergies [No Known Allergies*] Allergy (Verified 05/10/24 11:02) Medication List - Last Reconciled 05/10/24 by Tony Francis MD nystatin 1 appl topical TID tadalafil (Cialis) 10 mg PO .PRN 30 days tadalafil (Cialis) 5 mg PO DAILY 90 days Tobacco use date assessed: 05/10/24 Fall risk assessment: No Falls in past year Last assessed Fall Risk: 05/10/24 Dental Screening Dental Screen Date: 05/10/24 Did you have a dental visit in the last 12 months?: Yes Did you have a dental problem in the last 6 months where you did not have access to dental care?: No Was dental information given to patient?: Patient has dentist HPI annual exam HPI Details The patient is a 69-year-old male presenting with several health concerns during this visit. He has a history of hypertension, currently well-managed, with a recorded blood pressure of 128/70 mmHg during this visit. The patient reports significant weight gain over the past few years, escalating from 260 lbs in 2020 to approximately 350 lbs at present. Despite intentions to improve post-holiday, current dietary habits may be contributing to obesity. He reports occasional episodes of lightheadedness upon standing quickly, which aligns with benign positional vertigo. Furthermore, he is using a daily dose of 5 mg Cialis for erectile dysfunction with no allergy to this medication. The patient occasionally consumes alcohol, specifically two drinks on Sundays, and denies any use of tobacco or recreational drugs. Approximately eight years following cholecystectomy, he experiences loose bowel movements, which he attributes to dietary choices, particularly after consuming fatty foods. Despite adequate diet control, he avoids taking medication for this issue. His blood work history reveals elevated fasting glucose levels, with the latest reading at 108 mg/dL. Hemoglobin A1c is not within diabetic range but suggests an upward trend, necessitating dietary modifications. Lipid profile shows an increase in LDL cholesterol from 121 to 139 mg/dL, indicating hyperlipidemia. The patient has a history of low vitamin B12, from a baseline of 252 to 290 pg/mL, still considered lower than optimal. - Blood pressure well-controlled at 128/ 70 mmHg. - Encouraged weight management and aware ness regarding caloric intake post- holidays. - Discussed implications of benign posit ional vertigo; advised to ensure adequate hydration and caution when standing. - Advised on controlling dietary intake to manage loose stools post- cholecystectomy. - Reviewed glucose management, emphasizi ng dietary changes to avoid diabetes progression. - Discussed the need for improved choles terol control, targeting LDL levels below 130 mg/dL. - Current vitamin B12 level at 290 pg/mL ; diet modification or supplements discussed to maintain optimal levels. - Discussed immunization status: tetanus is current, pneumonia vaccination in 2021, flu, and RSV shots administered; shingles vaccine discussed but not given here. - Consumes alcohol occasionally, two dri nks on Sundays. - No tobacco use or recreational drugs r eported. - Desires improvements in weight managem ent and dietary habits post-holidays. - Cardiovascular: Denies chest pain or s hortness of breath. - Gastrointestinal: Denies constipation, but reports loose stools; denies blood in stools. - Neurological: Reports occasional light headedness upon sudden standing, no recent dizziness or passing out. - Respiratory: Denies fever, chills, or cough. - Ears: Hearing perceived as selective, denies any severe issues. - Labs: Fasting blood glucose elevated a t 108 mg/dL; Hemoglobin A1c not within diabetic range. - Cholesterol: LDL elevated at 139 mg/dL . - Vitamin B12 low at 290 pg/mL. - Blood counts: Normal; no anemia. [facility] Medical History (Updated 05/10/24 @ 11:25 by Tony Francis MD) Obesity, morbid, BMI 50 or higher Obesity BMI 40.0-44.9, adult Vitamin D deficiency Morbid (severe) obesity due to excess calories Intestinal malabsorption following gastrectomy Hearing impaired Impaired fasting glucose Osteoarthritis Hypercholesterolemia Malabsorption due to intolerance, not elsewhere classified Morbid obesity Surgical History History of hip replacement Hx laparoscopic cholecystectomy S/P ERCP Hx of tonsillectomy S/P laparoscopic sleeve gastrectomy Family History Father Myocardial infarct Mother No problems noted. Brother Hypertension Brother No problems noted. Sister No problems noted. Sister No problems noted. Son No problems noted. Daughter No problems noted. Daughter No problems noted. Daughter No problems noted. Social History (Updated 05/10/24 @ 11:22 by Tony Francis MD) Housing: House Alcohol intake: current Alcohol intake frequency: a few times a week Comment: once a week 2 drinks Patient Tobacco Use Status: Former Tobacco user Tobacco use type: Cigarette Years Smoked: stopped 1997 e-Cigarette/Vaping Use: Never Used Second Hand Smoke Exposure: No service: No Current occupational status: retired Cognitive needs: No Hearing needs: No Vision needs: Yes Questionnaire PHQ-9 Over the last 2 weeks, how often have you been bothered by any of the following problems? 1. Little interest or pleasure in doing things: not at all 2. Feeling down, depressed, or hopeless: not at all 3. Trouble falling or staying asleep, or sleeping too much: not at all 4. Feeling tired or having little energy: not at all 5. Poor appetite or overeating: not at all 6. Feeling bad about yourself - or that you are a failure or have let yourself or your family down: not at all 7. Trouble concentrating on things, such as reading the newspaper or watching television: not at all 8. Moving or speaking so slowly that other people could have noticed. Or the opposite - being so fidgety or restless that you have been moving around a lot more than usual: not at all 9. Thoughts that you would be better off or of hurting yourself in some way: not at all Total score: 0 Depression Screening Interpretation: Negative Depression Screening Done: Yes 11042 - PHQ-9 Billing: Yes Source: Developed by Drs. Wesley Hernandez, Nidhi Hu, Cristiano Dobson and colleagues, with an educational tiana from [employer]. Thrive Questionnaire Date Thrive assessed: 05/08/24 I am a: Patient What is your living situation today?: I have a steady place to live Within the past 12 months, did the food you bought not last and you didn't have the money to get more?: Sometimes True Within the past 12 months, did you worry whether your food would run out before you got money to buy more?: Sometimes True Do you have trouble paying for medicines?: I choose not to answer this question Do you have trouble getting transportation to medical appointments?: No Do you have trouble paying your heating and electricity bill?: No Do you have trouble taking care of your child, family member or friend?: No Do you have trouble with day-to-day activities such as bathing, preparing meals, shopping, managing finances, etc.?: No Are you currently unemployed and looking for a job?: No Are you interested in more education?: No Please select the resources that you would like help with: None Currently or been in a relationship where the following occur: No concerns reported THRIVE Score: 2 AUDIT C Alcohol Use Questionnaire (AUDIT-C) 1. How often do you have a drink containing alcohol?: 2-4 times a month 2. How many drinks containing alcohol do you have on a typical day when you are drinking?: 1 or 2 3. How often do you have six or more drinks on one occasion?: Never Total Score: 2 RADHA-7 AMB Questionnaire RADHA-7 Date RADHA - 7 assessed: 05/10/24 Feeling nervous, anxious, or on edge: 0 = Not at all Not being able to stop or control worryin = Not at all Worrying too much about different things: 0 = Not at all Trouble relaxin = Not at all Being so restless that it is hard to sit still: 0 = Not at all Becoming easily annoyed or irritable: 0 = Not at all Feeling afraid as if something awful might happen: 0 = Not at all Total RADHA-7 score (0-4 normal; 5-9 mild; 10-14 moderate; 15-21 severe): 0 Source: Developed by Drs. Wesley Hernandez, Nidhi Hu, Cristiano Dobson and colleagues, with an educational tiana from [employer]. Review of Systems Const Denies poor appetite and Denies weakness Eyes Denies no additional complaints ENT Reports Normal hearing present, Denies dizziness, Denies nasal congestion, Denies tinnitus and Denies sore throat Card Denies chest pain, Denies syncope, Denies rapid heart rate and Denies dyspnea Resp Denies cough and Denies dyspnea GI Denies change in stool character, Reports constipation, Denies diarrhea, Denies nausea and Denies vomiting Denies dysuria and Denies urinary frequency Neuro Reports Normal hearing present, Denies confusion, Denies dizziness, Denies syncope and Denies weakness Psych Denies confusion Physical exam (Primary Care) Vital Signs: Last Vital Signs Pulse 73 05/10/24 10:59 BP 128/70 05/10/24 11:20 Pulse Ox 95 05/10/24 10:59 Oxygen Delivery Method Room Air 05/10/24 10:59 BMI result Body Mass Index 54.8 Tobacco/Smoking Status: Tobacco use Status Tobacco use date assessed 05/10/24 05/10/24 11:04 Patient Tobacco Use Status Former Tobacco user 05/10/24 11:22 Tobacco use type Cigarette 05/10/24 11:22 e-Cigarette/Vaping Use Never Used 05/10/24 11:22 PHQ-9: PHQ-9 Score PHQ-9: Total score 0 05/10/24 11:18 Depression Screening Interpretation: Negative Thrive Assessment: Date of Thrive Assessment Date Thrive assessed 05/08/24 05/10/24 11:04 Currently or been in a relationship where the following occur: No concerns reported Const General: No confusion Orientation/consciousness: No confusion HENMT Head: Yes normocephalic Ears: external ears normal and TM's normal bilaterally Face and sinus: Yes normal facial exam Mouth: moist mucous membranes Throat: Yes tonsils normal Eyes Conjunctivae: conjunctivae normal Pupils: Equal, round and reactive pupils present and Pupil accommodation reflex normal Direct Ophthalmoscopy: normal light reflex Neck Neck: No lymphadenopathy Thyroid: Thyroid normal Chest Chest palpation & inspection: normal inspection of the chest Resp Effort & Inspection: normal respiratory effort and no audible wheezes Auscultation: clear to auscultation bilaterally, no crackles, no wheezes and lung sounds not diminished Cardio Rate: regular rate Rhythm: regular rhythm Peripheral pulses: radial pulses present and dorsalis pedis present GI Palpation (GI): no masses Auscultation: normal bowel sounds and normoactive bowel sounds Rectal Exam - Male: Yes deferred Skin General skin exam: no rashes or lesions noted Rashes: no rashes Neuro General: No confusion Cranial nerves: Yes Equal, round and reactive pupils present and Yes Normal hearing present Cognition (Neuro): normal cognition Gait exam (Neuro): Normal gait present Motor exam (neuro): 5/5 motor strength present throughout Deep tendon reflexes (DTR's): Right brachioradialis reflex intensity grade: 2+, Left brachioradialis reflex intensity grade: 2+, Right patellar reflex intensity grade: 2+ and Left patellar reflex intensity grade: 2+ Extrem General: No edema Coding Level of Care Code Est Pt Prev Care >65y(91604) Diagnoses Annual physical exam Z00.00 S/P laparoscopic sleeve gastrectomy Z98.84 Morbid obesity E66.01 Hypercholesterolemia E78.00 Impaired fasting glucose R73.01 Bile salt-induced diarrhea K90.89 Additional Codes PHQ-9 - 37471 - PHQ-9 Billing: Yes ([id number]) Assessment & Plan Assessment & Plan (1) Annual physical exam: Code(s): Z00.00 - Encounter for general adult medical examination without abnormal findings Category: Medical (2) S/P laparoscopic sleeve gastrectomy: Comment: with hiatal hernia repair - DOS 01/05/20 Dr. Clarke Code(s): Z98.84 - Bariatric surgery status Category: Surgical (3) Morbid obesity: Code(s): E66.01 - Morbid (severe) obesity due to excess calories Category: Medical (4) Hypercholesterolemia: Code(s): E78.00 - Pure hypercholesterolemia, unspecified Category: Medical (5) Impaired fasting glucose: Code(s): R73.01 - Impaired fasting glucose Category: Medical (6) Bile salt-induced diarrhea: Code(s): K90.89 - Other intestinal malabsorption Category: Medical Plan - Continue monitoring blood pressure, currently well-controlled. - Discuss weight loss strategies and dietary counseling for weight management. - Advise fluids increase and positional guidance to manage benign positional vertigo. - Continue current Cialis therapy for erectile dysfunction. - Promote dietary changes to manage glucose levels and prevent progression to diabetes. - Recommend lifestyle adjustments to improve lipid profile; consider statin therapy if levels remain elevated. - Recommend vitamin -rich diet or supplementation. - Follow-up in three months to assess progress. We reviewed the potential implications of his current metabolic status, emphasizing the importance of improving dietary and exercise habits to manage weight and prevent progression of hyperglycemia or hyperlipidemia. I addressed the need for ongoing blood pressure monitoring and reinforcing adherence to dietary recommendations. The potential benefits of augmenting red meat intake or supplements to maintain B12 levels were explained. I discussed immunization history and the potential lower urgency of the shingles vaccine, given it was not available here. Patient consented to proposed management and will follow up as advised. - Monitor blood pressure regularly at home. - Implement dietary modifications, emphasizing portion control and nutrient-de nse food choices. - Stay hydrated and rise slowly from seated/supine positions to manage vertigo symptoms. - Limit alcohol intake to maintain blood sugar control. - Maintain cholesterol-friendly diet; increase physical activity. - Continue current medication regimen as prescribed. - Schedule a follow-up visit in three months to monitor progress. Orders: Orders Lipid Panel 3 Months E78.00 - Pure hypercholesterolemia, unspecified, R73.01 - Impaired fasting glucose Hemoglobin A1c 3 Months R73.01 - Impaired fasting glucose Comprehensive Met. Panel 3 Months R73.01 - Impaired fasting glucose Medications: New tirzepatide (weight loss) (Zepbound) for 4 weeks BMI > 50 2.5 mg (0.5 mL) subcut QWEEK 2 mL 3RF E66.01 - Morbid (severe) obesity due to excess calories, R73.01 - Impaired fasting glucose cholestyramine-aspartame 4 gram (Prevalite) administer w/meal; avoid other meds within 1hr before or 4-6hr after dose 4 grams PO BID 60 ea 3RF K90.89 - Other intestinal malabsorption
[2024-05-10 11:20] VITALS: BP 128/70
== END 2024-05-10 11:43 | disposition home or self-care (01) ==
PROVIDERS: PCP Internal Medicine; Visit Provider Internal Medicine
DX: Z00.00 Encounter for general adult medical examination without abnormal findings (principal); Z98.84 Bariatric surgery status; E66.01 Morbid (severe) obesity due to excess calories; Z68.43 Body mass index [BMI] 50.0-59.9, adult; E78.00 Pure hypercholesterolemia, unspecified; R73.01 Impaired fasting glucose; K90.89 Other intestinal malabsorption

== ENCOUNTER 2024-07-31 07:20 | Outpatient (REF) | payer MEDICARE, OTHER, SELFPAY ==
[2024-07-31 12:28] LABS: Alanine Aminotransferase 24 U/L (0-40); Albumin Level 3.8 g/dL (3.5-5.0); Alkaline Phosphatase 58 U/L (39-117); Anion Gap 10 (12-20); Aspartate Amino Transferase 31 U/L (5-37); Bilirubin Total 0.6 mg/dL (0.0-1.0); Blood Urea Nitrogen 15 mg/dL (9-16); Calcium 8.8 mg/dL (8.4-10.2); Carbon Dioxide 26 mmol/L (22-29); Chloride 108 mmol/L (96-108); Cholesterol 186 mg/dL (<200); Estimated Glomerular Filt Rate > 60; Glucose Random 103 mg/dL (60-115); HDL Cholesterol 38 mg/dL (>40); LDL Cholesterol Calculated 115 mg/dL (<100); Potassium 4.3 mmol/L (3.3-5.1); Sodium 140 mmol/L (135-145); Total Protein 7.1 g/dL (6.5-8.0); Triglycerides 166 mg/dL (<150)
[2024-07-31 12:49] LABS: Estimated Average Glucose 126 mg/dL; Hemoglobin A1C 176.8506 umol/L; Total Hemoglobin (HGBA1C) 4196.4341 umol/L
== END 2024-07-31 07:21 | disposition home or self-care (01) ==
LOC: HO.HMGCLDS 07:20
PROVIDERS: PCP Internal Medicine; Visit Provider Internal Medicine
DX: R73.01 Impaired fasting glucose (principal); E78.00 Pure hypercholesterolemia, unspecified
CPT/HCPCS: 36415; 80053; 80061; 83036

== ENCOUNTER 2024-08-10 09:34 | Outpatient (AMB) | payer MEDICARE, OTHER, SELFPAY ==
--- NOTE | 2024-08-10 09:38 | A.OFFPC_ITS ---
Vital Signs 08/10/24 09:40 Height 5 ft 7 in Weight 352 lb 4 oz BMI 55.2 BP 120/72 Blood Pressure Location Lt brachial Position Sitting Pulse 65 Pulse Source Pulse Oximeter Temp 97.3 F Temp Source Temporal Artery Scan Pulse Oximetry (%) 94 Oxygen Delivery Method Room Air Intake Visit Reasons: obesity, cholesterol and IGT Intake Note: Patient is here to follow up on Obesity, Cholesterol and IGT. 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: Not Required per policy Accompanied by: Self / Same As Patient Allergies No Known Allergies [No Known Allergies*] Allergy (Verified 08/10/24 09:39) Medication List - Last Reconciled 08/10/24 by Tony Francis MD cholestyramine-aspartame 4 gram (Prevalite) 4 grams PO BID clotrimazole-betamethasone 1-0.05 % 1 appl topical BID 4 weeks nystatin 1 appl topical TID tadalafil (Cialis) 10 mg PO .PRN 30 days tadalafil (Cialis) 5 mg PO DAILY 90 days Tobacco use date assessed: 08/10/24 Fall risk assessment: No Falls in past year Last assessed Fall Risk: 08/10/24 Dental Screening Dental Screen Date: 08/10/24 Did you have a dental visit in the last 12 months?: Yes Did you have a dental problem in the last 6 months where you did not have access to dental care?: No Was dental information given to patient?: Patient has dentist [facility] Medical History (Updated 05/10/24 @ 11:25 by Tony Francis MD) Obesity, morbid, BMI 50 or higher Obesity BMI 40.0-44.9, adult Vitamin D deficiency Morbid (severe) obesity due to excess calories Intestinal malabsorption following gastrectomy Hearing impaired Impaired fasting glucose Osteoarthritis Hypercholesterolemia Malabsorption due to intolerance, not elsewhere classified Morbid obesity Surgical History History of hip replacement Hx laparoscopic cholecystectomy S/P ERCP Hx of tonsillectomy S/P laparoscopic sleeve gastrectomy Family History Father Myocardial infarct Mother No problems noted. Brother Hypertension Brother No problems noted. Sister No problems noted. Sister No problems noted. Son No problems noted. Daughter No problems noted. Daughter No problems noted. Daughter No problems noted. Social History Housing: House Alcohol intake: current Alcohol intake frequency: a few times a week Comment: once a week 2 drinks Patient Tobacco Use Status: Former Tobacco user Tobacco use type: Cigarette Years Smoked: stopped 1997 e-Cigarette/Vaping Use: Never Used Second Hand Smoke Exposure: Yes service: No Current occupational status: retired Cognitive needs: No Hearing needs: No Vision needs: Yes Questionnaire PHQ-9 Over the last 2 weeks, how often have you been bothered by any of the following problems? 1. Little interest or pleasure in doing things: not at all 2. Feeling down, depressed, or hopeless: not at all 3. Trouble falling or staying asleep, or sleeping too much: not at all 4. Feeling tired or having little energy: not at all 5. Poor appetite or overeating: not at all 6. Feeling bad about yourself - or that you are a failure or have let yourself or your family down: not at all 7. Trouble concentrating on things, such as reading the newspaper or watching television: not at all 8. Moving or speaking so slowly that other people could have noticed. Or the opposite - being so fidgety or restless that you have been moving around a lot more than usual: not at all 9. Thoughts that you would be better off or of hurting yourself in some way: not at all Total score: 0 Depression Screening Interpretation: Negative Depression Screening Done: Yes Source: Developed by Drs. Wesley Hernandez, Nidhi Hu, Cristiano Dobson and colleagues, with an educational tiana from [employer]. Thrive Questionnaire Date Thrive assessed: 08/10/24 AUDIT C Alcohol Use Questionnaire (AUDIT-C) 1. How often do you have a drink containing alcohol?: 2-4 times a month 2. How many drinks containing alcohol do you have on a typical day when you are drinking?: 1 or 2 3. How often do you have six or more drinks on one occasion?: Never Total Score: 2 RADHA-7 AMB Questionnaire RADHA-7 Date RADHA - 7 assessed: 08/10/24 Feeling nervous, anxious, or on edge: 0 = Not at all Not being able to stop or control worryin = Not at all Worrying too much about different things: 0 = Not at all Trouble relaxin = Not at all Being so restless that it is hard to sit still: 0 = Not at all Becoming easily annoyed or irritable: 0 = Not at all Feeling afraid as if something awful might happen: 0 = Not at all Total RADHA-7 score (0-4 normal; 5-9 mild; 10-14 moderate; 15-21 severe): 0 Source: Developed by Drs. Wesley Hernandez, Nidhi Hu, Cristiano Dobson and colleagues, with an educational tiana from [employer]. Physical exam (Primary Care) Vital Signs: Last Vital Signs Temp 97.3 F 08/10/24 09:40 Pulse 65 08/10/24 09:40 BP 120/72 08/10/24 09:40 Pulse Ox 94 08/10/24 09:40 Oxygen Delivery Method Room Air 08/10/24 09:40 BMI result Body Mass Index 55.2 Tobacco/Smoking Status: Tobacco use Status Tobacco use date assessed 08/10/24 08/10/24 09:44 Patient Tobacco Use Status Former Tobacco user 08/10/24 09:39 Tobacco use type Cigarette 08/10/24 09:39 e-Cigarette/Vaping Use Never Used 08/10/24 09:39 PHQ-9: PHQ-9 Score PHQ-9: Total score 0 08/10/24 09:39 Depression Screening Interpretation: Negative Thrive Assessment: Date of Thrive Assessment Date Thrive assessed 08/10/24 08/10/24 09:39 Const General: alert; No acute distress Eyes Conjunctivae: conjunctivae normal Resp Auscultation: clear to auscultation bilaterally Cardio Rate: regular rate Rhythm: regular rhythm GI Inspection: Yes normal to inspection Extrem General: Yes normal to inspection and No edema Coding Level of Care Code Est Pt Level 4 (04160) Diagnoses Morbid obesity E66.01 Impaired fasting glucose R73.01 S/P laparoscopic sleeve gastrectomy Z98.84 Hypercholesterolemia E78.00 Assessment & Plan Assessment & Plan (1) Morbid obesity: Code(s): E66.01 - Morbid (severe) obesity due to excess calories Category: Medical Plan: Diet and exercise (2) Impaired fasting glucose: Code(s): R73.01 - Impaired fasting glucose Category: Medical Plan: Decrease the amount of carbohydrate intake, pasta, bread, rice and potatoes are all sugar and that is aside from all the sweet stuff, remember that fruits are good but they are Sweet also. (3) S/P laparoscopic sleeve gastrectomy: Comment: with hiatal hernia repair - DOS 01/05/20 Dr. Clarke Code(s): Z98.84 - Bariatric surgery status Category: Surgical Plan: Continue with the bariatric follow-up (4) Hypercholesterolemia: Code(s): E78.00 - Pure hypercholesterolemia, unspecified Category: Medical Plan: Avoid fried foods, chicken skin, eggs, butter margarine, pastries and meat. Be it pork or beef they have a lot of cholesterol Plan History of Present Illness The patient is a 69-year-old male presenting for follow-up care related to chronic health conditions post-bariatric surgery. Following a laparoscopic sleeve gastrectomy in December 2019, he has experienced complications including intestinal malabsorption and bile salt-induced diarrhea. Management is ongoing for these issues as well as hypercholesterolemia. Laboratory results from March 2024 showed normal complete blood count and renal function, albeit with elevated blood sugar and triglycerides. His hemoglobin A1c has incrementally increased from 5.9 in 2023 to 6.0 currently, suggesting a worsening trend in glycemic control. Noteworthy is the patient's previous success with low-carbohydrate dietary measures which he has relaxed recently, resulting in elevated sugar levels. Additionally, there exists an issue with insurance coverage precluding access to treatment options such as trazepadide injections for weight management, though potential alternatives through weight management services were mentioned. Health Maintenance - Blood work last done in March 2024 with elevated blood glucose and triglycerides. - Recommended to resume a low-carbohydrate diet to help manage blood glucose l evels and triglycerides. - Discussion on maintaining dietary vigilance to manage cholesterol and avoid diabetes progression. Social History - The patient enjoys recreational use of tadalafil. - He has stopped stringent adherence to low-carbohydrate diets which previously helped manage glucose levels. - Encountered health insurance obstacles affecting access to certain prescribed medications. Review of Systems - Cardiovascular: Reports no chest pains. - Ophthalmologic: Plans for an upcoming eye exam on Friday; reports seeing a provider upstairs. - Respiratory: Reports no breathing difficulties. Physical Exam Results - Last blood work in March 2024: Normal complete blood count. Normal electrolytes, renal function. Elevated blood glucose and triglycerides. Hemoglobin A1c increased to 6.0. - Last colon test was conducted in 2019. Plan The patient is advised to return to a low-carbohydrate diet, which previously aided in managing glucose and triglyceride levels. Continued monitoring of cholesterol through dietary vigilance is crucial, with an emphasis on reducing fatty, fried, and meat-based foods. Medication adherence is crucial despite insurance restrictions on trazepadide injections, and consideration of weight management referrals will aid in enhancing post-bariatric care. The intent is to maintain management of hypercholesterolemia and prevent progression towards d iabetes, considering the increase in hemoglobin A1c and slightly elevated triglycerides. Patient was informed and verbally consented to the use of an ambient scribe for clinic note documentation during this visit. Discussion Notes I discussed the significant role of dietary habits, particularly a low- carbohydrate diet, in managing the patient's glucose and cholesterol levels. The patient's A1c increase from 5.9 to 6.0 reinforces the need for careful dietary management to prevent progression to diabetes. While cholesterol levels have shown improvement, triglyceride levels require further attention through diet modulation. The insurance challenge in obtaining trazepadide injections was acknowledged, with emphasis on potential pathways via weight management services for alternative interventions. Vaccine up-to-date status was reviewed, with confirmation of shingles vaccine obtained elsewhere. Follow-ups to reconfirm labs, specifically fasting sugar and cholesterol levels, were discussed for continuity in proactive management. Patient Instructions - Resume low-carbohydrate diet to better manage blood sugar and cholesterol levels. - Monitor intake of fatty and fried foods as well as meats to help control triglycerides. - Continue with prescribed medications as directed. - Plan for future follow-up blood work ahead of physical to monitor fasting sugar and cholesterol levels. - Consider discussions with weight management services if needing alternative coverage for medications. - Keep track of any subsequent changes in symptoms or health related developments. Orders: Orders Complete Blood Count Auto Diff 8 Months R73.01 - Impaired fasting glucose Thyroid Stimulating Hormone 8 Months R73.01 - Impaired fasting glucose Vitamin B12 and Folate 8 Months R73.01 - Impaired fasting glucose Comprehensive Met. Panel 8 Months R73.01 - Impaired fasting glucose Free T4 (Free Thyroxine) 8 Months R73.01 - Impaired fasting glucose Prostate Specific Antigen Scr 8 Months R73.01 - Impaired fasting glucose Hemoglobin A1c 8 Months R73.01 - Impaired fasting glucose Lipid Panel 8 Months E78.00 - Pure hypercholesterolemia, unspecified, R73.01 - Impaired fasting glucose UA w Microscopic 8 Months R73.01 - Impaired fasting glucose Medications: Discontinued tirzepatide (weight loss) (Zepbound) for 4 weeks BMI > 50 Discontinued Reason: Insurance Denied 2.5 mg (0.5 mL) subcut QWEEK 2 mL 3RF E66.01 - Morbid (severe) obesity due to excess calories, R73.01 - Impaired fasting glucose
[2024-08-10 09:40] VITALS: BP 120/72; PULSE 65; TEMP 36.3; O2SAT 94; BMI 55.2
== END 2024-08-10 10:48 | disposition home or self-care (01) ==
LOC: HO.HMCH 09:34
PROVIDERS: PCP Internal Medicine; Visit Provider Internal Medicine
DX: R73.01 Impaired fasting glucose (principal); E66.01 Morbid (severe) obesity due to excess calories; Z68.43 Body mass index [BMI] 50.0-59.9, adult; Z98.84 Bariatric surgery status; E78.00 Pure hypercholesterolemia, unspecified

== ENCOUNTER → 2024-08-10 09:34 | Outpatient (BNVA) | payer MEDICARE, OTHER, SELFPAY | PROVIDERS: PCP Internal Medicine; Visit Provider Internal Medicine | DX: E66.01 Morbid (severe) obesity due to excess calories (principal); R73.01 Impaired fasting glucose; E78.00 Pure hypercholesterolemia, unspecified; Z98.84 Bariatric surgery status | CPT/HCPCS: 99212 ==

== ENCOUNTER 2024-08-17 07:54 | Outpatient (AMB) | payer MEDICARE, OTHER, SELFPAY ==
--- NOTE | 2024-08-17 08:02 | A.OFFVIS_ITS ---
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 Francis. He has a past medical history of erectile dysfunction, morbid obesity, vitamin-D deficiency, hearing impaired, osteoarthritis, and hypercholesteremia. He presents to the office today for follow-up of his urinary dribbling, balanitis, and erectile dysfunction. In discussion with the patient today he does continue to report episodes of urinary dribbling however does feel tadalafil has been helpful in erectile dysfunction he had been experiencing. He also notes improvement in balanitis with topical treatment however does report intermittent episodes of reoccurrence. We discussed further treatment options and risks and benefits of these treatment options. Previous workup has included a bladder ultrasound 11/02 noting the bladder is well distended and normal. Pre void bladder volume is approximately 145 mL. Postvoid bladder volume is approximately 15 mL. Prostate is upper limits of normal/borderline measuring approximately 25 mL. A small median lobe can be seen protruding into the bladder. PSAs are as follows: 08/30 0.1, 04/03 0.1, 04/04 0.1 Discussed at length potential causes of urinary dribbling. We discussed importance of weight loss as well as pelvic floor therapy to assist with urinary dribbling. In office urinalysis results reviewed with the patient today. He otherwise denies urinary urgency, urinary frequency, nocturia, hematuria, dysuria, foul smelling urine, flank pain, fever, and or chills. He otherwise offers no other issues or concerns at this time. Plan Management of urinary dribbling includes recommendations to sit during urination for full bladder evacuation and engaging in pelvic floor exercises. The recurrent balanitis was discussed as well as further treatment options and risks and benefits of these treatment options. However, will continue with surveillance monitoring at this time. For weight management, primarily focusing on dietary interventions was suggested, with increased activity levels planned with warmer weather. Patient was informed and verbally consented to the use of an ambient scribe for clinic note documentation during this visit. Discussion Notes During the consultation, I addressed the patient's concerns about urinary dribbling and explored non-medical interventions due to the absence of specific pharmacological solutions. I advised trying pelvic floor exercises to enhance bladder function, alongside strategies like sitting to urinate, to aid complete urination. For obesity, I emphasized diet over physical activity as a preliminary strategy, highlighting the pitfalls of simultaneous dietary and physical undertakings. Any additional significant physical activity will be encouraged once external factors like weather improve. The patient demonstrated understanding and willingness to engage with this management approach. [facility] Medical History Obesity, morbid, BMI 50 or higher Obesity BMI 40.0-44.9, adult Vitamin D deficiency Morbid (severe) obesity due to excess calories Intestinal malabsorption following gastrectomy Hearing impaired Impaired fasting glucose Osteoarthritis Hypercholesterolemia Malabsorption due to intolerance, not elsewhere classified Morbid obesity Surgical History History of hip replacement Hx laparoscopic cholecystectomy S/P ERCP Hx of tonsillectomy S/P laparoscopic sleeve gastrectomy Family History Father Myocardial infarct Mother No problems noted. Brother Hypertension Brother No problems noted. Sister No problems noted. Sister No problems noted. Son No problems noted. Daughter No problems noted. Daughter No problems noted. Daughter No problems noted. Social History Housing: House Alcohol intake: current Alcohol intake frequency: a few times a week Comment: once a week 2 drinks Patient Tobacco Use Status: Former Tobacco user Tobacco use type: Cigarette Years Smoked: stopped 1997 e-Cigarette/Vaping Use: Never Used Second Hand Smoke Exposure: Yes service: No Current occupational status: retired Cognitive needs: No Hearing needs: No Vision needs: Yes Review of Systems Const Reports no additional complaints Eyes Reports no additional complaints ENT Reports as per HPI Card Reports as per HPI Resp Reports no additional complaints GI Reports no additional complaints Reports as per HPI Musc Reports as per HPI Skin/Breast Reports as per HPI Neuro Reports no additional complaints Psych Reports no additional complaints Endo Reports no additional complaints Flavio/Lymph Reports no additional complaints Aller/Immun Reports no additional complaints Physical Exam Const General: cooperative, comfortable, no acute distress, well developed, alert and awake Nutritional Appearance: obese Orientation/consciousness: patient oriented x3 Limitations: no limitations HEENT Head: Yes normal to inspection, Yes normocephalic and Yes atraumatic Ears: hearing grossly normal bilaterally Eyes General: appearance normal, both eyes and all related structures Neck Neck: Yes normal visual inspection and Yes trachea midline Chest Chest palpation & inspection: normal inspection of the chest Resp Effort & Inspection: normal respiratory effort and able to speak in complete sentences Cardio Rate: regular rate GI Inspection: Yes normal to inspection Other: as per HPI General: Yes no CVA tenderness Back/Spine/Pelvis Back: no CVA tenderness Skin General skin exam: no rashes or lesions noted Neuro General: patient oriented x3 Extrem General: Yes normal to inspection Psych Appearance: grossly normal and well kempt Mental Status: mental status grossly normal Speech and movement: Normal speech and movement present and Clear speech present Affect: normal affect Attitude: cooperative Thought process: Normal thought process present Thought content: Normal thought content present Insight: Fair insight present (Psych) Judgement: Fair judgement present (Psych) Results AMB Urinalysis, Automated UA Leukoctes 0 Marques/uL Last Edit by Alexandre Greenberg on 08/17/24 08:22 UA Nitrite Last Edit by Alexandre Greenberg on 08/17/24 08:22 UA Urobilinogen 0.2 mg/dL Last Edit by Alexandre Greenberg on 08/17/24 08:22 UA Protein 0 mg/dL Last Edit by Alxeandre Greenberg on 08/17/24 08:22 UA pH 5.5 Last Edit by Alexandre Greenberg on 08/17/24 08:22 UA Blood 0 Yassine/uL Last Edit by Alexandre Greenberg on 08/17/24 08:22 UA Specific [place] 1.020 Last Edit by Alexandre Greenberg on 08/17/24 08:22 UA Ketone Last Edit by Alexandre Greenberg on 08/17/24 08:22 UA Bilirubin 0 mg/dL Last Edit by Alexandre Greenberg on 08/17/24 08:22 UA Glucose 0 mg/dL Last Edit by Alexandre Greenberg on 08/17/24 08:22 Assessment & Plan Assessment & Plan (1) Erectile dysfunction: Code(s): N52.9 - Male erectile dysfunction, unspecified Category: Medical (2) Balanitis: Code(s): N48.1 - Balanitis Category: Medical (3) Urinary dribbling: Code(s): N39.43 - Post-void dribbling Category: Medical Plan In office urinalysis results reviewed with the patient today; as noted above. We discussed the importance of weight loss to assist with urinary dribbling as well as recurrent balanitis. Continue Cialis as discussed and prescribed. Will continue with surveillance monitoring at this time. We discussed potential near future in office cystoscopy and or urodynamics if symptoms continue. We discussed importance of pelvic floor exercises to assist with urinary dribbling. Follow-up in 6 months with PSA and PVR; or sooner with any issues, concerns, and or questions. Orders: Orders AMB Urinalysis Automated Today Z13.9 - Encounter for screening, unspecified Prostate Specific Antigen 6 Months N52.9 - Male erectile dysfunction, unspecified Patient Instructions: The patient had an opportunity to ask questions regarding the treatment plan. All questions were answered. Physical exam, labs, and imaging were discussed and reviewed in detail. As well as risks, benefits, and discussion of treatment choices. No major barriers to understanding were identified. The patient expressed understanding and agreement with the above treatment plan. The patient was made aware they should contact our office by phone for worsening of their current condition, the appearance of new symptoms, or with any questions or concerns. Compliance is encouraged with any medications and follow up testing that is ordered. It is a privilege to be allowed the opportunity to participate in? your urological care.? Again, if you have any questions or concerns If you have any questions or concerns please do not hesitate to contact me. The office is [phone]. This note is constructed using voice recognition software. While every effort has been made to ensure accuracy dredge pipe operator errors may have been included. Yours sincerely, JOSÉ MIGUEL Vicente Coding Level of Care Code Est Pt Level 3 (35858) Diagnoses Erectile dysfunction N52.9 Balanitis N48.1 Urinary dribbling N39.43
== END 2024-08-17 08:30 | disposition home or self-care (01) ==
LOC: HO.HUSH 07:54
PROVIDERS: PCP Internal Medicine; Visit Provider Nurse Practitioner Family
DX: N52.9 Male erectile dysfunction, unspecified (principal); N48.1 Balanitis; N39.43 Post-void dribbling; Z13.9 Encounter for screening, unspecified
CPT/HCPCS: 99213

== ENCOUNTER → 2024-08-17 07:54 | Outpatient (BNVA) | payer MEDICARE, OTHER, SELFPAY | PROVIDERS: PCP Internal Medicine; Visit Provider Nurse Practitioner Family | DX: N48.1 Balanitis (principal); N52.9 Male erectile dysfunction, unspecified; N39.43 Post-void dribbling | CPT/HCPCS: 81003; 99212 ==

== ENCOUNTER 2025-02-16 06:00 | Outpatient (REF) | payer MEDICARE, OTHER, SELFPAY ==
--- OUTSIDE RECORDS SUMMARY | 2025-02-16 06:04 | XMS_ITS | Patient Health Record ---
Author Organization [facility] Address [address] [place] [id number] Care Team Providers Care Clinical Trial Head Name Role Phone Tony Francis MD Primary Care Provider Wesley Han Unavailable [phone] [place] Unavailable Unavailable Reason For Referral No Information Medications Medication SIG (Take, Route, Fr equency, Duration) Notes Start Date End Date Status Aspirin 325 MG 1 tablet Orally QD-BID prn hip pain Active Immunizations Vaccine Route Administration Date Status Comme nts Influenza Unknown 03/09/2018 Administered Social History Tobacco Use: Social History Observation Description Date Details (start date - stop date) Former Smoker NA - NA Tobacco Use/Smoking Question Answer Notes Patient is a former smoker How long has it been since you last smoked? > 10 years Alcohol Screen Question Answer Notes Did you have a drink contain ing alcohol in the past year? Yes How often did you have a dri nk containing alcohol in the past year? 2 to 4 times a month (2 points) How many drinks did you have on a typical day when you were drinking in the past year? 1 or 2 drinks (0 point) Points 2 Interpretation Negative Section Notes: Nonsmoker > 10 years; no sig alcohol Problems Problem Type SNOMED Code ICD Code Onset Dates Problem Status W/U Status Risk Notes Problem [id number] Encounter for screening for malignant neoplasm of colon (Z12.11) Active confirmed Problem [id number] Preprocedural examination (Z01.818) Active confirmed Plan Of Treatment Future Test Test Name Order Date COLONOSCOPY 05/14/2018 Insurance Providers Payer Name Payer Address Payer Phone Subscriber Number Group Number Insured Name Patient Relationship to Insured Coverage Start Date Coverage End Date [facility] [id number] [facility] [place] [phone] [id number] VIDYA BARRERA Self - patient is the insured Medical (General) History Medical History History ICD Code Denies CA,DM,CVA,Lung disease,renal dise ase Cholangitis with sepsis in 05/2017--- underwent an ERCP with sphincterotomy by Dr. Cosby--this revealed questionable tiny amounts of biliary sludge; he also had a negative upper endoscopy at that same setting with Dr. Cosby. Negative colonoscopy [place] [address] Elizabeth cameron Left hip pain from arthritis Surgical History Surgery Date(Month/Year) Cholecystectomy 2009 Vasectomy
[2025-02-16 08:41] LABS: Prostate Specific Antigen 0.12 ng/mL (<0.05-4.0)
== END 2025-02-16 06:01 | disposition home or self-care (01) ==
LOC: HO.LAB 06:00
PROVIDERS: PCP Internal Medicine; Visit Provider Nurse Practitioner Family
DX: N48.1 Balanitis (principal); N52.9 Male erectile dysfunction, unspecified; N39.43 Post-void dribbling; Z12.5 Encounter for screening for malignant neoplasm of prostate
CPT/HCPCS: 36415; 51798; 81003; 84153; 99212

== ENCOUNTER 2025-02-16 09:24 | Outpatient (AMB) | payer MEDICARE, OTHER, SELFPAY ==
--- NOTE | 2025-02-16 09:27 | A.OFFVIS_ITS ---
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 Francis. He has a past medical history of erectile dysfunction, morbid obesity, vitamin-D deficiency, hearing impaired, osteoarthritis, and hypercholesteremia. He presents to the office today for follow-up of his urinary dribbling, balanitis, and erectile dysfunction. In discussion with the patient today he does continue to report episodes of urinary dribbling however does feel tadalafil has been helpful in erectile dysfunction he had been experiencing. He also notes improvement in balanitis with topical treatment however does report intermittent episodes of reoccurrence. We discussed further treatment options and risks and benefits of these treatment options. Previous workup has included a bladder ultrasound 11/02 noting the bladder is well distended and normal. Pre void bladder volume is approximately 145 mL. Postvoid bladder volume is approximately 15 mL. Prostate is upper limits of normal/borderline measuring approximately 25 mL. A small median lobe can be seen protruding into the bladder. PSAs are as follows: 08/30 0.1, 04/03 0.1, 04/04 0.1, 03/05 0.1 Discussed at length potential causes of urinary dribbling. We discussed impor tance of weight loss as well as pelvic floor therapy to assist with urinary dribbling. In office urinalysis results reviewed with the patient today. PVR 0 mL. He otherwise denies urinary urgency, urinary frequency, nocturia, hematuria, dysuria, foul smelling urine, flank pain, fever, and or chills. He otherwise offers no other issues or concerns at this time. [facility] Medical History Obesity, morbid, BMI 50 or higher Obesity BMI 40.0-44.9, adult Vitamin D deficiency Morbid (severe) obesity due to excess calories Intestinal malabsorption following gastrectomy Hearing impaired Impaired fasting glucose Osteoarthritis Hypercholesterolemia Malabsorption due to intolerance, not elsewhere classified Morbid obesity Surgical History History of hip replacement Hx laparoscopic cholecystectomy S/P ERCP Hx of tonsillectomy S/P laparoscopic sleeve gastrectomy Family History Father Myocardial infarct Mother No problems noted. Brother Hypertension Brother No problems noted. Sister No problems noted. Sister No problems noted. Son No problems noted. Daughter No problems noted. Daughter No problems noted. Daughter No problems noted. Social History (Reviewed 08/17/24 @ 08:21 by Alexandre Greenberg, [facility]) Housing: House Alcohol intake: current Alcohol intake frequency: a few times a week Comment: once a week 2 drinks Patient Tobacco Use Status: Former Tobacco user Tobacco use type: Cigarette Years Smoked: stopped 1997 e-Cigarette/Vaping Use: Never Used Second Hand Smoke Exposure: Yes service: No Current occupational status: retired Cognitive needs: No Hearing needs: No Vision needs: Yes Review of Systems Const Reports no additional complaints Eyes Reports no additional complaints ENT Reports as per HPI Card Reports as per HPI Resp Reports no additional complaints GI Reports no additional complaints Reports as per HPI Musc Reports as per HPI Skin/Breast Reports as per HPI Neuro Reports no additional complaints Psych Reports no additional complaints Endo Reports no additional complaints Flavio/Lymph Reports no additional complaints Aller/Immun Reports no additional complaints Physical Exam Const General: cooperative, comfortable, no acute distress, well developed, alert and awake Nutritional Appearance: obese Orientation/consciousness: patient oriented x3 Limitations: no limitations HEENT Head: Yes normal to inspection, Yes normocephalic and Yes atraumatic Ears: hearing grossly normal bilaterally Eyes General: appearance normal, both eyes and all related structures Neck Neck: Yes normal visual inspection and Yes trachea midline Chest Chest palpation & inspection: normal inspection of the chest Resp Effort & Inspection: normal respiratory effort and able to speak in complete sentences Cardio Rate: regular rate GI Inspection: Yes normal to inspection Other: as per HPI General: Yes no CVA tenderness Back/Spine/Pelvis Back: no CVA tenderness Skin General skin exam: no rashes or lesions noted Neuro General: patient oriented x3 Extrem General: Yes normal to inspection Psych Appearance: grossly normal and well kempt Mental Status: mental status grossly normal Speech and movement: Normal speech and movement present and Clear speech present Affect: normal affect Attitude: cooperative Thought process: Normal thought process present Thought content: Normal thought content present Insight: Fair insight present (Psych) Judgement: Fair judgement present (Psych) Office Procedures Post Void Residual Post Residual Void Post Void Residual (PVR): 0 [id number] Void Residual by ultrasound Results AMB Urinalysis, Automated UA Leukoctes 0 Marques/uL Last Edit by HARDIK Baron on 02/16/25 09:41 UA Nitrite Negative Last Edit by HARDIK Baron on 02/16/25 09:41 UA Urobilinogen 0.2 mg/dL Last Edit by HARDIK Baron on 02/16/25 09:4 1 UA Protein 0 mg/dL Last Edit by HARDIK Baron on 02/16/25 09:41 UA pH 6.0 Last Edit by HARDIK Baron on 02/16/25 09:41 UA Blood 0 Yassine/uL Last Edit by HARDIK Baron on 02/16/25 09:41 UA Specific [place] 1.020 Last Edit by HARDIK Baron on 02/16/25 09: 41 UA Ketone Negative Last Edit by HARDIK Baron on 02/16/25 09:41 UA Bilirubin 1 mg/dL Last Edit by HARDIK Baron on 02/16/25 09:41 UA Glucose 0 mg/dL Last Edit by HARDIK Baron on 02/16/25 09:41 Results Reviewed Results Reviewed: Laboratory Last Values Urine pH (Auto) 6.0 02/16/25 09:32 Specific [place] (Auto) 1.020 02/16/25 09:32 Urine Protein (Auto) 0 mg/dL 02/16/25 09:32 Glucose (UA)(Auto) 0 mg/dL 02/16/25 09:32 Urine Ketones (Auto) Negative 02/16/25 09:32 Urine Blood (Auto) 0 Yassine/uL 02/16/25 09:32 Urine Nitrite (Auto) Negative 02/16/25 09:32 Urine Bilirubin (Auto) 1 mg/dL 02/16/25 09:32 Urine Urobilinogen (Auto) 0.2 mg/dL 02/16/25 09:32 Leukocyte Esterase (Auto) 0 Marques/uL 02/16/25 09:32 Assessment & Plan Assessment & Plan (1) Erectile dysfunction: Code(s): N52.9 - Male erectile dysfunction, unspecified Category: Medical (2) Balanitis: Code(s): N48.1 - Balanitis Category: Medical (3) Urinary dribbling: Code(s): N39.43 - Post-void dribbling Category: Medical Plan In office urinalysis results reviewed with the patient today; as noted above. PVR 0 mL. Recent PSA results reviewed with the patient today; as noted above. We discussed the importance of weight loss to assist with urinary dribbling as well as recurrent balanitis. Continue Cialis as discussed and prescribed. Will continue with surveillance monitoring at this time. We discussed importance of pelvic floor exercises to assist with urinary dribbling. Follow-up in 6 months with PVR; or sooner with any issues, concerns, and or questions. Orders: Orders AMB Urinalysis Automated Today Z13.9 - Encounter for screening, unspecified Medications: Refilled clotrimazole-betamethasone 1-0.05 % Apply thin coat 2 times per day 1 appl topical BID 45 grams 1RF 4 weeks N48.1 - Balanitis Patient Instructions: The patient had an opportunity to ask questions regarding the treatment plan. All questions were answered. Physical exam, labs, and imaging were discussed and reviewed in detail. As well as risks, benefits, and discussion of treatment choices. No major barriers to understanding were identified. The patient expressed understanding and agreement with the above treatment plan. The patient was made aware they should contact our office by phone for worsening of their current condition, the appearance of new symptoms, or with any questions or concerns. Compliance is encouraged with any medications and follow up testing that is ordered. It is a privilege to be allowed the opportunity to participate in? your urological care.? Again, if you have any questions or concerns If you have any questions or concerns please do not hesitate to contact me. The office is [phone]. This note is constructed using voice recognition software. While every effort has been made to ensure accuracy form tamper operator errors may have been included. Yours sincerely, JOSÉ MIGUEL Vicente Coding Level of Care Code Est Pt Level 3 (88249) Complex EM visit Add On G2211 Diagnoses Erectile dysfunction N52.9 Balanitis N48.1 Urinary dribbling N39.43 CPT Codes Post Residual Void - PVR CPT Code: 73827-[id number] Void Residual by ultrasound ([id number])
== END 2025-02-16 10:19 | disposition home or self-care (01) ==
LOC: HO.HUSH 09:25
PROVIDERS: PCP Internal Medicine; Visit Provider Nurse Practitioner Family
DX: N52.9 Male erectile dysfunction, unspecified (principal); N48.1 Balanitis; N39.43 Post-void dribbling; Z13.9 Encounter for screening, unspecified
CPT/HCPCS: 99213; G2211

== ENCOUNTER 2025-03-03 10:49 | Outpatient (AMB) | payer MEDICARE, OTHER, SELFPAY ==
--- NOTE | 2025-03-03 11:09 | AM.OFFVISNUR ---
Intake Visit Reasons: Flu shot Allergies No Known Allergies (No Known Allergies*) Allergy (Verified 02/16/25 10:06) Office Procedures Flu Questionnaire Does the patient have a severe egg allergy?: No Does the patient have severe life threatening allergies?: No Does the patient have a fever or illness today?: No Has the patient ever had Guillain-[place] Syndrome?: No Has the patient ever had any past reaction to a flu shot?: No Immunizations Fluarix [id number] (PF) 45 mcg (15 mcg x 3)/0.5 mL IM syringe Performing Provider: Tony Francis MD [facility] [place] Administered by: Denia Burroughs LPN on 03/03/25 11:09 Dose Route Admin Location Dispensed Lot Number Expiration Date [facility] Developer [employer] 0.5 mL IM Right Deltoid 0.5 mL [id number] 11/08/25 21784-625-50 [employer] [facility] VIS Given Date VIS Provided VIS Publication Date 03/03/25 Single Vaccine 24 Eligibility Eligibility Date Funding Source Not [facility] Eligible 03/03/25 Private Assessment & Plan Assessment & Plan Orders: Orders Influenza [id number] Immunization Today Z23 - Encounter for immunization Coding
== END 2025-03-03 11:09 | disposition home or self-care (01) ==
LOC: HO.HMCH 10:50
PROVIDERS: PCP Internal Medicine; Visit Provider Internal Medicine
DX: Z23 Encounter for immunization (principal)

== ENCOUNTER → 2025-03-03 10:49 | Outpatient (BNVA) | payer MEDICARE, OTHER, SELFPAY | PROVIDERS: PCP Internal Medicine; Visit Provider Internal Medicine | DX: Z23 Encounter for immunization (principal) | CPT/HCPCS: 90471; 90656 ==

== ENCOUNTER 2025-05-11 06:04 | Outpatient (REF) | payer MEDICARE, OTHER, SELFPAY ==
--- OUTSIDE RECORDS SUMMARY | 2025-05-11 06:07 | XMS_ITS | Patient Health Record ---
Author Organization [facility] Address [address] [place] [address] Care Team Providers Care Extracorporeal Technician Name Role Phone Tony Francis MD Primary Care Provider Wesley Han Unavailable [phone] [place] Unavailable Unavailable Reason For Referral No Information Medications Medication SIG (Take, Route, Fr equency, Duration) Notes Start Date End Date Status Aspirin 325 MG Tablet 1 tablet Orally QD -BID prn hip pain Active Immunizations Vaccine Route Administration Date Status Comme nts Influenza Unknown 03/09/2018 Administered Social History Tobacco Use: Social History Observation Description Date Details (start date - stop date) Former Smoker NA - NA Social History Drugs/Alcohol: Social Info Question Answer Notes Alcohol Screen Did you have a drink containing alcohol in the past year? Yes How often did you have a drink containing alcohol in the past year? 2 to 4 times a month (2 points) How many drinks did you have on a typical day when you were drinking in the past year? 1 or 2 drinks (0 point) Points 2 Interpretation Negative Tobacco Use: Social Info Question Answer Notes Tobacco Use/Smoking Patient is a former smoker How long has it been since you last smoked? 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 [employer] Section Notes: Nonsmoker > 10 years; no sig alcohol Problems Problem Type SNOMED Code ICD Code Onset Dates Problem Status W/U Status Risk Notes Problem Screening for malignant neoplasm of colon (255642916) Encounter for screening for malignant neoplasm of colon (Z12.11) Active confirmed Problem Preprocedural examination (185959791407110) Preprocedural examination (Z01.818) Active confirmed Plan Of Treatment Future Test Test Name Order Date COLONOSCOPY 05/14/2018 Insurance Providers Payer Name Payer Address Payer Phone Subscriber Number Group Number Insured Name Patient Relationship to Insured Coverage Start Date Coverage End Date [facility] [address] [facility] [place] [id number] JOSEFINAVIANCA PORTERH Self - patient is the insured Medical (General) History Medical History History ICD Code Denies VA,DM,CVA,Lung disease,renal dise ase Cholangitis with sepsis in [...]
[2025-05-11 06:40] LABS: MANUAL DIFF FLAG NO
[2025-05-11 07:21] LABS: Hematocrit 51.6 % (42.0-52.0); Hemoglobin 16.5 g/dl (14.0-18.0); Imm Gran Abs Auto 0.04 X10*3/uL (0.00-0.03); Imm Gran Pct Auto 0.4 % (0.0-0.4); Lymphocytes Absolute Auto 2.4 X10*3/uL (1.2-4.9); Mean Corpuscular HGB Conc 32.0 g/dl (31.0-36.0); Mean Corpuscular Hemoglobin 32.1 pg (27.0-33.0); Mean Corpuscular Volume 100.4 fL (80.0-98.0); NRBC Abs Auto 0.000 X10*3/uL (0.0-0.012); NRBC Pct Auto 0.0 /100WBC (0.0-0.2); Platelet Count 314 X10*3/uL (160-400); Red Blood Count 5.14 X10*6/uL (4.60-5.80); White Blood Count 10.2 X10*3/uL (4.8-10.8)
[2025-05-11 07:58] LABS: Alanine Aminotransferase 27 U/L (0-40); Albumin Level 4.1 g/dL (3.5-5.0); Alkaline Phosphatase 73 U/L (39-117); Anion Gap 12 (12-20); Aspartate Amino Transferase 30 U/L (5-37); Blood Urea Nitrogen 17 mg/dL (9-16); Calcium 9.7 mg/dL (8.4-10.2); Carbon Dioxide 28 mmol/L (22-29); Chloride 106 mmol/L (96-108); Cholesterol 234 mg/dL (<200); Estimated Glomerular Filt Rate > 60; HDL Cholesterol 46 mg/dL (>40); Potassium 4.8 mmol/L (3.3-5.1); Sodium 141 mmol/L (135-145); Total Protein 7.1 g/dL (6.5-8.0); Triglycerides 181 mg/dL (<150)
[2025-05-11 08:02] LABS: Free T4 (Free Thyroxine) 0.86 ng/dL (0.71-1.85); Thyroid Stimulating Hormone 1.14 uIU/mL (0.32-4.0)
[2025-05-11 08:24] LABS: Folate 6.0 ng/mL (> or = 4.0); Vitamin B12 215 pg/mL (200-900)
[2025-05-11 08:41] LABS: Appearance Urine Clear; Glucose Urine UA Negative (Negative); PH 5.5 (5.0-9.0); Specific Gravity - Urine 1.020 (1.005-1.025); UMIC TRIGGER UA YES
== END 2025-05-11 06:05 | disposition home or self-care (01) ==
LOC: HO.LAB 06:04
PROVIDERS: PCP Internal Medicine; Visit Provider Internal Medicine
DX: R73.01 Impaired fasting glucose (principal); E78.00 Pure hypercholesterolemia, unspecified; Z12.5 Encounter for screening for malignant neoplasm of prostate
CPT/HCPCS: 36415; 80053; 80061; 81001; 82607; 82746; 83036; 84153; 84439; 84443; 85025